=== PATIENT | female | born 1945 ===

== ENCOUNTER 2019-12-27 14:33 | Outpatient (CLI) | payer MEDICARE, SELFPAY ==
[2019-12-27 15:30] VITALS: PULSE 95; O2SAT 93
[2019-12-27 15:35] VITALS: PULSE 124; O2SAT 87
[2019-12-27 15:36] VITALS: O2SAT 87
[2019-12-27 15:38] VITALS: PULSE 120; O2SAT 90
[2019-12-27 15:50] VITALS: PULSE 100; O2SAT 93
--- NOTE | 2019-12-27 16:10 | HOMEO2EVAL ---
Home Oxygen Evaluation RC: Home Oxygen (O2) Evaluation Start: 12/27/19 16:07 Freq: Status: Active Protocol: RPE Activity Type Activity Date Activity User E-Sign Co-Sign Detail Recorded Client Recorded Date Recorded By Document 12/27/19 15:30 TRAN [email or web address] 12/27/19 16:10 TRAN Document 12/27/19 15:35 TRAN [email or web address] 12/27/19 16:10 TRAN Document 12/27/19 15:36 TRAN [email or web address] 12/27/19 16:10 TRAN Document 12/27/19 15:38 TRAN [email or web address] 12/27/19 16:10 TRAN Document 12/27/19 15:50 TRAN [email or web address] 12/27/19 16:10 TRAN 12/27/19 12/27/19 12/27/19 15:30 15:35 15:36 Home O2 Evaluation Test Phase Resting Exercise Exercise Oxygen Delivery Room Air Room Air Nasal Cannula Oxygen Flow Rate (L/min) 1 Pulse Oximetry (90-100 %) 93 87 L 87 L Pulse Rate (60-100 beats/min) 95 124 H Activity Tolerance Excellent Ambulation Distance (feet) Home Oxygen Evaluation Comments Treatment Charges O2 Evaluation 12/27/19 12/27/19 15:38 15:50 Home O2 Evaluation Test Phase Exercise Resting Oxygen Delivery Nasal Cannula Room Air Oxygen Flow Rate (L/min) 2 Pulse Oximetry (90-100 %) 90 93 Pulse Rate (60-100 beats/min) 120 H 100 Activity Tolerance Ambulation Distance (feet) 600 Home Oxygen Evaluation Comments PT REQUIRES 2 L WITH ACTIVITY/ EXERTION Treatment Charges
--- NOTE | 2019-12-27 16:11 | PCRCNOTE ---
HOME O2 EVAL FAXED TO DR MADDEN OFFICE STAFF
--- NOTE | 2019-12-30 19:00 | WPDPFTINT ---
PFT Interpretation PFT Interpretation: DOS: 12/27/2019 REQUESTING: Dr. Back REASON FOR TESTING: ILD PULMONARY FUNCTION TESTS Results are reliable and reproducible. Spirometry: FEV1 71%, mildly decreased. FVC 67%, mildly decreased. FEV1% is normal. Decreased KOJ40-56% with a 15% increase in flows in small airways. Lung volumes: Total lung capacity 62% moderately decreased consistent with restriction. no air trapping. Increased airway resistance. Diffusion: DLCO 47% moderately decreased. Flow volume loop: Scooping in the expiratory limb. IMPRESSION: Moderate restriction evidence by decreased total lung capacity. Increased airway resistance. Small airways pattern. Moderate reduction in DLCO. Compared to prior study on 11/24/2017 spirometry is the same. Total lung capacity has decreased, was 75% now 62%. DLCO has dropped from 64% to 47%, a significant decrease. This is consistent with progression of interstitial lung disease. Jes Back MD
== END 2019-12-27 14:34 | disposition home or self-care (01) ==
PROVIDERS: PCP Internal Medicine; Visit Provider Internal Medicine Critical Care Medicine
DX: J96.10 Chronic respiratory failure, unspecified whether with hypoxia or hypercapnia (principal); R94.2 Abnormal results of pulmonary function studies
CPT/HCPCS: 94060; 94618; 94726; 94729

== ENCOUNTER 2021-07-02 14:30 | Inpatient (IN) | payer MEDICARE, SELFPAY ==
[2021-07-02] VITALS (23 sets, daily range): BP systolic 80–168; BP diastolic 52–99; PULSE 90–117; RESP 20–46; TEMP 35.5–37.1; O2SAT 89–99
--- NOTE | ~2021-07-02 | CT_ITS ---
EXAMINATION: CTA chest PE protocol EXAM DATE: 07/02/2021 15:42 INDICATION: shortness of breath . TECHNIQUE: Spiral CTA of the chest (pulmonary arteries) was performed with 100 cc Omnipaque 350 intr avenous contrast injection. Images were acquired during the pulmonary arterial phase. Coronal maxi mum intensity projection 3D-reconstructions were created by the technologist on dedicated workstation . Axial, coronal and sagittal reformatted images were reviewed. The dose-length product (DLP) for t his examination was 146.23 mGy-cm. The exposure was tailored according to patient size (auto mA exp osure control), and iterative reconstruction (ASIR) was used as additional dose reduction technique. There is no prior study for comparison. FINDINGS: There are multiple masses in each breast, largest on the left side and appears contiguous w ith the skin for clinical correlation, region measuring 1.5 x 4.3 cm. But there is bilateral hilar ly mphadenopathy, soft tissue encasing the hilar bronchovascular structures making discrete lymph nodes difficult to measure, and bilateral mediastinal lymphadenopathy. No axillary lymphadenopathy. The main, central pulmonary arteries are dilated which can indicate elevated pulmonary arterial press ure, pulmonary arterial hypertension. There are no filling defects within these pulmonary arteries. There is peripheral, basilar predominant airspace disease which is subsolid in density, differential diagnosis including lymphangitic carcinomatosis, interstitial lung disease, acute infection or acute on chronic process. There is cardiomegaly. Upper abdomen is unremarkable. Moderate thoracic spondylos is. IMPRESSION: 1. Multiple bilateral breast masses breast masses, thoracic lymphadenopathy with infiltrative appear ing hilar, mediastinal soft tissue. 2. Moderate amount of peripheral predominant. Solid density, acute and/or chronic airspace disease. Given the breast masses and lymphadenopathy, possible lymphangitic carcinomatosis. 3. Cardiomegaly. Dilated pulmonary arteries without emboli. Reviewed, dictated and finalized at location G. ENT DEVELOPMENT MANAGER IMPRESSION: 1. Multiple bilateral breast masses breast masses, thoracic lymphadenopathy wi th infiltrative appearing hilar, mediastinal soft tissue. 2. Moderate amount of peripheral predominant. Solid density, acute and/or special forces specialist latisha airspace disease. Given the breast masses and lymphadenopathy, possible lym phangitic carcinomatosis. 3. Cardiomegaly. Dilated pulmonary arteries without emboli.
--- NOTE | ~2021-07-02 | XR_ITS ---
EXAMINATION: XR chest PICC line EXAM DATE: 07/03/2021 15:31 INDICATION: PICC line placement. Breast masses on CT. TECHNIQUE: Portable AP frontal chest x-ray was obtained. Comparison is made to prior examination from 07/03/2021. FINDINGS: There is cardiomegaly and pulmonary vascular congestion. Diffuse abnormal reticulation agai n noted, differential diagnosis including pneumonia and/or edema, lymphangitic carcinomatosis, chroni c interstitial lung disease. No pneumothorax. No sizable pleural effusion. There is a right-sided PIC C line in expected position. The bones are osteopenic. There are bony degenerative changes. IMPRESSION: 1. Moderate amount of peripheral predominant airspace disease, acute and/or chronic. 2. Cardiomegaly, congestion. 3. Right PICC line in position. Reviewed, dictated and finalized at location G. UCTION SUPPORT ENGINEER IMPRESSION: 1. Moderate amount of peripheral predominant airspace disease, acute and/or ch ronic. 2. Cardiomegaly, congestion. 3. Right PICC line in position.
--- NOTE | ~2021-07-02 | US_ITS ---
US breast BI complete 07/06/2021 16:18 Indication: Bilateral breast masses seen on prior examination. History of breast cancer. Procedure: High-resolution complete bilateral breast ultrasound including all 4 quadrants in the suba reolar locations. Comparison: No prior studies for comparison. Findings: There are multiple hypoechoic ill-defined masses with dense posterior shadowing in both remberto asts, largest located at the 12:00 position of both breasts. Impression: 1: Multiple ill-defined bilateral breast masses with dense posterior shadowing. Recommendation: Digital diagnostic bilateral mammogram recommended for further assessment. BI-RADS CATEGORY 0 - INCOMPLETE STUDY, NEED ADDITIONAL IMAGING EVALUATION. Reviewed, dictated and finalized at location A. ER HAND Impression: 1: Multiple ill-defined bilateral breast masses with dense posterior shadowing. Recommendation: Digital diagnostic bilateral mammogram recommended for further assessment. BI-RADS CATEGORY 0 - INCOMPLETE STUDY, NEED ADDITIONAL IMAGING EVALUATION.
--- NOTE | ~2021-07-02 | XR_ITS ---
EXAMINATION: XR chest 1V portable DATE: 07/03/2021 08:56 INDICATION: Interstitial lung disease. Pneumonia. TECHNIQUE: frontal view of the chest was obtained. COMPARISON: Chest radiograph dated 09/07/[address] dated 07/02/2021 FINDINGS: There is been interval progression since 09/07/2017 in peripheral and basilar predominant coarse opaci ties with appearance on prior CT raising suspicion for chronic interstitial lung disease potentially with superimposed pulmonary edema. Suture line in the right lower lung zone. No pleural effusion or p neumothorax. Mild cardiomegaly. Enlargement of the central pulmonary arteries consistent with pulmona ry arterial hypertension. Increased fullness to the AP window and thickening of the right paratrachea l stripe corresponding to mediastinal lymphadenopathy on prior CT suspicious for metastatic disease. IMPRESSION: 1. Diffuse peripheral and lower lung predominant opacities most likely related to chronic interstitia l lung disease potentially with superimposed pulmonary edema or pneumonia. 2. Mediastinal lymphadenopathy better appreciated on prior CT and suspicious for metastatic disease. 3. Cardiomegaly with enlargement of the central pulmonary arteries consistent with pulmonary arterial hypertension. Reviewed, dictated and finalized at location A. ANICAL SPREADER OPERATOR IMPRESSION: 1. Diffuse peripheral and lower lung predominant opacities most likely related to chronic interstitial lung disease potentially with superimposed pulmonary ed dylan or pneumonia. 2. Mediastinal lymphadenopathy better appreciated on prior CT and suspicious fo r metastatic disease. 3. Cardiomegaly with enlargement of the central pulmonary arteries consistent w ith pulmonary arterial hypertension.
--- NOTE | ~2021-07-02 | CT_ITS ---
EXAMINATION: CT abdomen pelvis wo con DATE: 07/03/2021 12:07 INDICATION: Breast cancer. Hypothermia. TECHNIQUE: Computed tomography (CT) of the abdomen and pelvis was performed without intravenous contr ast. Automated exposure control and iterative reconstruction technique were employed. Exam dose: 570 .42 mGy-cm total exam DLP. COMPARISON: July 02, 2021 CTA chest FINDINGS: Exam quality is limited due to the upper extremities overlying the abdomen. Prominent septal soft tissue thickening in the included lower lung zones with peripheral predilection in addition to bronchiectasis, suggesting usual interstitial pneumonia interstitial fibrosis. Prominent pulmonary arteries, suggesting pulmonary artery hypertension. Cardiomegaly. Multiple bilateral breast masses; clinical history of breast cancer. The liver, gallbladder, bile ducts pancreas, pancreatic duct and spleen appear unremarkable; the sple en measures 12 cm vertical dimension, within upper normal range. Normal morphology of the adrenal glands. There is still some intravenous contrast material on board, apparently from the CTA of the chest from yesterday. There is suggestion of a 2.5 mm calculus of the mid to lower aspect of the left kidney. No hydronephr osis of either kidney. No renal space occupying mass lesion is evident. There is normal caliber of the abdominal aorta. There is a right femoral artery catheter terminating in the proximal right common iliac artery. No intraperitoneal or retroperitoneal or pelvic mass lesion or adenopathy or ascites is detected. There is a Ureña catheter within the evacuated urinary bladder. Small sliding hiatal hernia. There are nondilated small bowel segments with occasional air-fluid leve ls which may be due to adynamic ileus or enteritis. Diverticulosis of the sigmoid colon; no CT evidence of diverticulitis is detected. There is a promine nt amount of fecal material in the colon. No intraperitoneal free air is detected. Very small fat-containing umbilical hernia. Diffuse idiopathic skeletal hyperostosis of the thoracic spine. There is moderate biconcave likely chronic compression fracture deformity of L5. There is very prominent degenerative change at the apophyseal joints of the lumbar and lumbosacral sp ine with associated grade 1 anterolisthesis at L4-5. Severe bilateral hip osteoarthritis. Degenerative change at the pubic symphysis and sacroiliac joints . IMPRESSION: Probably usual interstitial pneumonia interstitial fibrosis of the lungs Prominent pulmonary artery suggesting pulmonary hypertension Cardiomegaly Multiple breast masses; history of breast cancer Suggestion of a small nonobstructing left renal calculus Right femoral artery catheter in proximal common iliac artery Small sliding hiatal hernia Small bowel scattered air-fluid levels suggesting enteritis or mild adynamic ileus Diverticulosis of the sigmoid colon; no evidence of diverticulitis Probable L5 compression fracture deformity Grade 1 anterolisthesis at L4-5 due degenerative change at apophyseal joints Severe bilateral hip osteoarthritis Reviewed, dictated and finalized at Location A. Reviewed, dictated and finalized at location B. S PROPERTY MANAGER IMPRESSION: Probably usual interstitial pneumonia interstitial fibrosis of the lungs Prominent pulmonary artery suggesting pulmonary hypertension Cardiomegaly Multiple breast masses; history of breast cancer Suggestion of a small nonobstructing left renal calculus Right femoral artery catheter in proximal common iliac artery Small sliding hiatal hernia Small bowel scattered air-fluid levels suggesting enteritis or mild adynamic il eus Diverticulosis of the sigmoid colon; no evidence of diverticulitis Probable L5
--- NOTE | ~2021-07-02 | XR_ITS ---
EXAMINATION: XR chest 1V portable EXAM DATE: 07/06/2021 09:06 INDICATION: Hypersensitivity pneumonitis. TECHNIQUE: Portable AP frontal chest x-ray was obtained. Comparison is made to prior examination from 07/03/2021. FINDINGS: Right-sided PICC line, tip projecting over the SVC, appears to have retracted several centi meters. Extensive bilateral chronic or acute on chronic airspace disease unchanged. No pneumothorax o r sizable pleural effusion. Cardiomediastinal silhouette is normal. There are bony degenerative ornelas es. IMPRESSION: 1. PICC line retracted several centimeters, tip still in SVC. 2. Extensive bilateral chronic or acute on chronic airspace disease unchanged. Reviewed, dictated and finalized at location B. H HAND
--- NOTE | ~2021-07-02 | XR_ITS ---
XR chest 2V DATE: 07/14/2021 10:33 INDICATION: Interstitial lung disease TECHNIQUE: AP and lateral views COMPARISON: July 09, 2021 portable AP chest July 02, 2021 CT pulmonary scan 09/06/2021/03/2018 two-view chest FINDINGS: Right upper extremity PIC catheter tip overlies the superior vena cava. Cardiomegaly. No pulmonary vascular congestion, pleural effusion or pneumothorax is evident. There are chronic interstitial fibrotic changes predominating in the peripheral lung zones. There are diminished bilateral pulmonary infiltrates since 07/09/2021. Diffuse osteopenia. There is bilateral chronic rotator cuff atrophy. Degenerative spurring and mild scoliosis of the thoracic spine. IMPRESSION: Diminished bilateral pulmonary infiltrates since 07/09/2021 Bilateral chronic interstitial fibrotic change Reviewed, dictated and finalized at location B. E INSTRUCTOR
--- NOTE | ~2021-07-02 | US_ITS ---
EXAMINATION: US abdomen limited DATE: 07/03/2021 11:16 INDICATION: Abnormal liver function tests. TECHNIQUE: Multiple grayscale and Doppler ultrasound images of the abdomen were obtained. COMPARISON: Chest CT 07/02/2021 FINDINGS: The visualized portions of the head, body, and tail of the pancreas are normal. The liver i s normal without focal lesion. There is normal flow in main portal vein. The gallbladder is normal in size. No gallstones or gallbladder wall thickening. There was no sonographic Delatorre sign. The common duct is normal and measures 4 mm. IMPRESSION: 1. No etiology for abnormal liver function tests. Reviewed, dictated and finalized at location E. DEVELOPER WITH [employer]
--- NOTE | ~2021-07-02 | XR_ITS ---
EXAMINATION: XR chest 1V portable DATE: 07/09/2021 09:57 INDICATION: Hypersensitivity pneumonitis TECHNIQUE: frontal view of the chest was obtained. COMPARISON: Chest radiograph dated 07/16/2021 FINDINGS: Suture line in the lateral right mid to lower lung zone. No significant change in diffuse airspace op acities throughout both lungs. No pneumothorax or definitive pleural effusion. Borderline heart size. Enlargement of the central pulmonary arteries consistent with pulmonary arterial hypertension.. Righ t upper extremity peripherally inserted central venous catheter (PICC) tip at the mid superior vena cava. IMPRESSION: 1. No significant change in bilateral airspace opacities due at least in part to chronic interstitial lung disease with potential for superimposed more acute pulmonary edema or pneumonia. 2. Borderline heart size with enlargement of the central pulmonary arteries consistent with pulmonary arterial hypertension. Reviewed, dictated and finalized at location A. [employer]OR[employer] SCIENCE CHAIR IMPRESSION: 1. No significant change in bilateral airspace opacities due at least in part t o chronic interstitial lung disease with potential for superimposed more acute pulmonary edema or pneumonia. 2. Borderline heart size with enlargement of the central pulmonary arteries con sistent with pulmonary arterial hypertension.
--- NOTE | 2021-07-02 14:57 | ED.WEAKNESS ---
HPI - Weakness General Chief complaint: Weakness Stated complaint: SOB Time Seen by Provider: 07/02/21 14:39 Source: patient History of Present Illness HPI Narrative: Patient presents with shortness of breath and weakness. Patient reports she has been getting progressively worse symptoms over the past couple days. She is currently residing in a hotel motel called an ambulance as she has been too weak to answer the door. She denies any fever she reports a history of interstitial lung disease and has a 4 L oxygen requirement at home she denies any focal areas of pain denies any nausea. Related Data Home Medications Medication Instructions Recorded Confirmed dextroamphetamine-amphetamine 20 20 mg PO BID 10/16/19 04/10/21 mg tablet paroxetine HCl 40 mg tablet 40 mg PO DAILY 10/16/19 04/10/21 Allergies Allergy/AdvReac Type Severity Reaction Status Date / Time No Known Allergies Allergy Unverified 04/10/21 10:03 Review of Systems Review of Systems: CONSTITUTIONAL: Denies fever, chills, or sweats. EYES: Denies visual changes, redness, or discharge. ENT: Denies rhinorrhea, congestion, sore throat, or otalgia. CARDIOVASCULAR: Denies chest pain, palpitations, or edema. RESPIRATORY: Reports shortness of breath GASTROINTESTINAL: Denies abdominal pain, nausea, vomiting, or diarrhea. GENITOURINARY: Denies dysuria or hematuria. SKIN: Denies rash or itching. MUSCULOSKELETAL: Denies back pain, joint pain, or myalgia. NEUROLOGIC: Denies headache, numbness, dizziness, or focal weakness. PSYCHIATRIC: Denies anxiety or depression. All systems reviewed & are unremarkable except as noted in HPI and below PMFSH Past Medical History Medical History (Updated 07/02/21 @ 16:51 by Jermaine Brownlee MD) Bronchiectasis Chronic respiratory failure Contact with and (suspected) exposure to mold (toxic) Hypersensitivity pneumonitis Intentional underdosing of medication regimen by patient due to financial hardship Oxygen dependent Surgical History Surgical History H/O: hysterectomy History of appendectomy Family History Family History Father Cerebrovascular accident, Onset Age: 93 Family history of Alzheimer's disease, Onset Age: 93 Family history of dementia, Onset Age: 93 Mother Cerebrovascular accident, Onset Age: 91 Social History Social History Smoking status: Former smoker Smoking end date: 05/30/1967 Exam Narrative: GENERAL: Frail-appearing and in no acute distress. HEAD: Normocephalic, atraumatic. EYES: PERRLA and EOMI. ENT: Nares clear, no rhinorrhea or epistaxis. Mucous membranes moist. NECK: Supple. No masses. No JVD CHEST: Increased respiratory effort with diffuse rhonchi in all lung pinto HEART: Regular rate and rhythm. No murmur heard. Normal peripheral pulses. ABDOMEN: Soft, nontender, nondistended, normal active bowel sounds. EXTREMITIES: Normal range of motion. No edema. SKIN: Warm, dry, no rash. NEURO: No focal deficits. Alert and oriented x3. PSYCH: Normal mood and affect. Course Vital Signs Vital signs: Vital Signs Temperature 36.4 C 07/02/21 14:35 Pulse Rate 117 H 07/02/21 14:35 Respiratory Rate 22 H 07/02/21 14:35 Blood Pressure 98/55 L 07/02/21 14:35 Pulse Oximetry 95 07/02/21 14:35 Temperature 36.4 C 07/02/21 14:35 Pulse Rate 103 H 07/02/21 16:45 Respiratory Rate 30 H 07/02/21 16:45 Blood Pressure 168/99 H 07/02/21 15:11 Pulse Oximetry 89 L 07/02/21 16:45 MDM - Weakness MDM Narrative Medical decision making narrative: Patient presents with shortness of breath and weakness over the past couple days. Patient has known interstitial lung disease and chronic right heart failure. Patient overall looks chronically ill vital signs notable for tachycardia and tachypnea.
--- NOTE | 2021-07-02 14:59 | ECG_ITS ---
Measurements Intervals [place] Rate: 108 P: 66 [place]: 132 QRS: 110 QRSD: 98 T: -6 QT: 314 QTc: 422 Interpretive Statements SINUS TACHYCARDIA ATRIAL PREMATURE COMPLEX RIGHT AXIS DEVIATION POSSIBLE LEFT ATRIAL ENLARGEMENT INCOMPLETE RIGHT BUNDLE BRANCH BLOCK ST-T WAVE ABNORMALITY IN ANTEROSEPTA/INF LEADS- CONSIDER ISCHEMIA ABNORMAL ECG Electronically Signed On 07-02-2021 20:19:39 NATURAL DEVELOPER by Nawaf Wagoner D.O.
[2021-07-02 15:10] LABS: Basophils Absolute Auto 0.1 K/mm3 (0.0-0.1); Basophils Percent Auto 0.4 % (0.2-1.2); Eosinophils Percent Auto 0.2 % (0-4.4); Hematocrit 39.2 % (37.0-47.0); Hemoglobin 13.1 g/dL (12.0-15.0); Immature Granulocyte Absolute 0.11 K/mm3 (0.00-0.031); Immature Granulocyte Percent A 0.9 % (0-0.5); Immature Platelet Fraction Pct 8.7 % (0.9-11.2); Lymphocytes Absolute Auto 0.34 K/mm3 (0.9-3.2); Lymphocytes Percent Auto 2.6 % (18.3-44.2); Mean Corpuscular HGB Conc 33.4 g/dl (32-36); Mean Corpuscular Hemoglobin 29.5 pg (26-34); Mean Corpuscular Volume 88.3 fl (80-100); Mean Platelet Volume 11.2 fl (7.4-10.4); Monocytes Absolute Auto 0.2 K/mm3 (0.1-0.6); Monocytes Percent Auto 1.2 % (2.6-8.5); Neutrophils Absolute Auto 12.2 K/mm3 (1.3-6.7); Neutrophils Percent Auto 94.7 % (45.5-73.1); Platelet Count Result 122 k/mm3 (150-375); Red Blood Count 4.44 M/mm3 (4.2-5.4); Red Cell Distribution Width 15.9 % (11.5-14.5); White Blood Count 12.9 K/mm3 (4.5-10.0)
[2021-07-02 15:14] LABS: Alveolar/Arterial O2 Gradient 134.6 mmHg; Base Excess ABG 3.9 mEq/l (+/-2.0); Fractional Inspired Oxygen 36 %; HCO3 ABG 27.1 mEq/l (22.0-26.0); Oxygen Content ABG 18.1 %vol (16.0-22.0); Oxygen Saturation ABG 96.6 % (95.0-100.0); Oxyhemoglobin 95.3 % THb (90.0-100.0); PCO2 ABG 36.4 mmHg (35.0-45.0); PO2 ABG 79.9 mmHg (80.0-100.0); PO2 FiO2 Ratio Arterial Blood 2.22 %; Total Hemoglobin 13.5 g/dL (12.0-18.0)
[2021-07-02 15:15] LABS: Device NASAL CANNULA; Modified Allen's Test Pass; Site Drawn LEFT RADIAL
[2021-07-02 15:19] LABS: Alanine Aminotransferase 45 U/L (4-35); Albumin Level 3.1 g/dL (3.5-5.1); Alkaline Phosphatase 61 U/L (38-126); Anion Gap 3 mmol/L (8-16); Aspartate Amino Transferase 74 U/L (14-36); Bilirubin,Total 0.7 mg/dL (0.2-1.3); Blood Urea Nitrogen 18 mg/dL (7-17); Calcium 8.1 mg/dL (8.4-10.2); Carbon Dioxide 31 mmol/L (22-30); Chloride 96 mmol/L (98-107); Estimated CRCL calculation 48 ml/min; Estimated Glomerular Filt Rate > 60; Glucose 136 mg/dL (65-110); Potassium 3.7 mmol/L (3.4-5.0); Sodium 130 mmol/L (137-145)
[2021-07-02 15:22] LABS: Ovalocytes 1+ (NORMAL); Platelet Estimate Decreased (Adequate)
[2021-07-02 15:27] LABS: NT Pro B Type Natriuretic Pept 12900 pg/mL (5-100)
[2021-07-02 16:03] LABS: Add Urine Microscopic? YES; Appearance Urine Clear (Clear); Bilirubin Urine Negative (Negative); Blood Urine 1+ (Negative); Color Urine Amber (Yellow); Glucose Urine UA Negative (Negative); Ketones Urine Negative (Negative); Leukocyte Esterase Ur Negative LEU/UL (Negative); Mucus Urine Heavy /lpf; Nitrate Urine Negative (Negative); Protein Urine 2+ mg/dL (Negative); Specific Grav Ur 1.039 (1.001-1.035); Squamous Epithelial Cell Urine Occasional /hpf (Few); Urobilinogen Urine Negative mg/dL (<2.0)
--- NOTE | 2021-07-02 17:45 | PM.IMHP ---
H&P: HPI History of Present Illness Date/Time: 07/02/21 17:45 Chief Complaint: Weakness and shortness of breath. Narrative: This is a 75-year-old female with chronic hypoxic respiratory failure related to interstitial lung disease who presented to the emergency department via EMS from a local mot for evaluation of weakness and shortness of breath. She reports chronic dyspnea on exertion and gets winded with everyday activities. Over the last several days she has felt increasingly short of breath from her baseline with a nonproductive cough, chills, and sweats. She was seen in the emergency department at [facility] sometime yesterday for evaluation of shortness of breath and chest discomfort. At that time she was apparently diagnosed with pneumonia and discharged home with a prescription for antibiotics though she has not been able to get that filled as of yet. She is not feeling any better today and opted to come here for evaluation. Chest CTA done on arrival showed multiple bilateral breast masses with thoracic lymphadenopathy and a moderate amount of peripheral predominant airspace disease, likely acute and/or chronic, though lymphangitis carcinomatosis is also possibility. Initial plans were to possibly discharge the patient for outpatient follow-up though it came to light that she is currently staying at a local motel and on EMS arrival her room was in disrepair with hoarding conditions. The mot is not willing to take the patient back and due to the social constraints it was felt that keeping the patient hospital overnight for further treatment and evaluation was more appropriate. ED physician spoke with Dr. Espinal (pulmonology) and given findings on imaging he has requested that she be started on broad-spectrum antibiotics and nebulizers. Regarding the breast masses, she admits that she noted them ?quite some time ago? and she thought that perhaps they were due to previous breast implants which were removed. At the time my evaluation she feels a bit better after receiving a nebulizer. She denies fever, headache, sinus congestion, rhinorrhea, sore throat, chest pain, pleuritic pain, palpitations, orthopnea, PND, lower extremity edema, nausea, vomiting, and dysuria. Weight has remained stable. She has no known history of cancer. Review of Systems Review of Systems: Twelve systems were reviewed. No sick contacts. No known exposure to those positive for COVID 19. She is followed by Dr. Back and was referred to [facility] in [place] for possible lung transplant though has been deemed not a candidate at this time. It looks like she was recently seen by them at the beginning of May 2021. She denies dysphagia and concerns for aspiration. She has had some loose stools but not in significant quantities. Except as documented, all other systems were reviewed and are negative. [facility] Past Medical History Medical History (Updated 07/02/21 @ 22:30 by Angela Zhong PA-C) Bronchiectasis Chronic interstitial lung disease Chronic respiratory failure with hypoxia Depression Hypersensitivity pneumonitis Intentional underdosing of medication regimen by patient due to financial hardship Pulmonary fibrosis Right ventricular dysfunction Surgical History Surgical History (Updated 07/02/21 @ 22:28 by Angela Zhong PA-C) History of appendectomy History of breast implant With subsequent removal. History of hysterectomy History of lung biopsy Right VATS. 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 Family History Family History Father Cerebrovascular accident, Onset Age: 93 Family history of Alzheimer's disease, Onset Age: 93 Family history of dementia, Onset Age: 93 Mother Cerebrovascular accident, Onset Age: 91 Social History Social History (Updated 07/02/21 @ 22:24 by Angela Zhong PA-C) Social History:
[2021-07-02 17:53] LABS: SARS-CoV-2 RNA PCR Negative
[2021-07-02] MEDS: PIPERACILLIN/TAZOBACTAM SOD 4.5 GM in SODIUM CHLORIDE 0.9% IV 100 ML 200 ML IVPB (18:51)
[2021-07-02] MEDS: methylPREDNISolone SOD SUCC 125 MG VIAL 60 MG IV PUSH (18:51)
[2021-07-02] MEDS: ALBUTEROL SULFATE NEB 2.5 MG/0.5 ML INH INHALATION (20:45)
[2021-07-02] MEDS: IPRATROPIUM BR 0.02% INH SOLN 0.5 MG/2.5 ML VIAL INHALATION (20:45)
[2021-07-02 21:01] LABS: Glucose Point of Care 151 mg/dl (65-105)
--- NOTE | 2021-07-02 21:06 | ADMGEN ---
This patient, Schuyler Aviles, was admitted to 2 Medical Room 241-. Patient/family oriented to hospital policies and general routines including ID bracelet, bed and alarms, visiting hours, pain management, procedures, bathroom and other care routines, personal items, smoking policy, room service/diet, and visiting hours. Information on how to activate the Rapid Response Team has been discussed. Patient/Family are encouraged to report perceived risks to care and to ask questions if they do not understand what they are told or what they should do.
[2021-07-02] MEDS: FUROSEMIDE INJ 40 MG/4 ML VIAL 20 MG IV PUSH (21:38)
[2021-07-02] MEDS: SODIUM CHLORIDE 0.9% IV 500 ML IV CONT (23:21)
[2021-07-03] VITALS (42 sets, daily range): BP systolic 70–116; BP diastolic 47–103; PULSE 74–132; RESP 16–33; TEMP 32.3–35.7; O2SAT 53–100; BMI 26.2
--- NOTE | 2021-07-03 | ECHO_ITS ---
Patient Info Name: Schuyler Aviles Age: 75 years : 1945 Gender: Female Ht: 61 in Wt: 139 lbs BSA: 1.66 m2 HR: 95 bpm BP: 70 / 50 mmHg Heart Rhythm: Atrial Fibrillation Technical Quality: Fair Exam Date: 07/03/2021 7:25 AM Exam Location: [facility] Patient Status: Outpatient Admit Date: 07/02/2021 Staff Ordering Physician: Kanchan Holman MD Training Development Specialist: Kaylyn Marroquin RDCS Attending Provider: Azeb Lyons MD Referring Physician: Manda SZYMANSKI; Exam Type: CA echo dop color flow w con Study Info Indications - elevated bnp Complete two-dimensional, color flow and Doppler transthoracic echocardiogram is performed. Summary 1. Complete two-dimensional, color flow and Doppler transthoracic echocardiogram is performed. 2. Left ventricular chamber dimension is mildly enlarged. 3. Definity Contrast administered improved wall motion interpretation. 4. Left ventricular systolic function is mildly reduced, estimated at 45-50%. 5. There is mildly increased left ventricular wall thickness. 6. Left ventricular septal wall motion is abnormal with septal motion related to bundle branch block. 7. The left ventricular diastolic function is abnormal. 8. E/e' 12 is mildly elevated. 9. Right ventricular systolic function is moderately reduced and with abnormal TAPSE 1.3 cm. 10. Right ventricular chamber dimension is moderately enlarged. 11. Right atrial chamber dimension is moderately enlarged. 12. There is trace mitral valve regurgitation. 13. There is mild tricuspid valve regurgitation. 14. No pulmonary hypertension, estimated pulmonary arterial systolic pressure is 24 mmHg. 15. There is trivial pericardial effusion. Left Ventricle E/e' 12 is mildly elevated. Definity Contrast administered improved wall motion interpretation. Left ventricular chamber dimension is mildly enlarged. Left ventricular systolic function is mildly reduced, estimated at 45-50%. There is mildly increased left ventricular wall thickness. Left ventricular septal wall motion is abnormal with septal motion related to bundle branch block. The left ventricular diastolic function is abnormal. Right Ventricle Right ventricular systolic function is moderately reduced and with abnormal TAPSE 1.3 cm. Right ventricular chamber dimension is moderately enlarged. Left Atria Left atrial chamber dimension is normal. Right Atria Right atrial chamber dimension is moderately enlarged. Aortic Valve The aortic valve is trileaflet. There is no aortic valve stenosis. There is no aortic valve regurgitation. Pulmonic Valve There is no pulmonic regurgitation. Mitral Valve There is no mitral valve stenosis. There is trace mitral valve regurgitation. Tricuspid Valve There is mild tricuspid valve regurgitation. No pulmonary hypertension, estimated pulmonary arterial systolic pressure is 24 mmHg. Pericardium/Pleural There is trivial pericardial effusion. Inferior Vena Cava Normal inferior vena cava with >50% collapse upon inspiration consistent with normal right atrial pressure, 5 mmHg. Aorta The aortic root size at the sinus of Valsalva is normal. Left Ventricular Outflow Tract Name Value Normal LVOT 2D LVOT Dania
[2021-07-03 00:11] LABS: Hemoglobin A1C 6.7 % (<5.7)
[2021-07-03] MEDS: PIPERACILLIN/TAZOBACTAM SOD 4.5 GM in SODIUM CHLORIDE 0.9% IV 100 ML 200 ML IVPB ×4 (00:21→23:33)
[2021-07-03] MEDS: SODIUM CHLORIDE 0.9% IV 1,000 ML 999 ML IV CONT (00:26)
[2021-07-03 00:52] LABS: Creatinine Urine 29.8 mg/dL
[2021-07-03 00:53] LABS: Sodium Urine Random 62 meq/L
[2021-07-03 01:05] LABS: Hepatitis B Surface Antigen Negative (Negative)
[2021-07-03 01:11] LABS: HAV RESULT Negative (Negative); Hepatitis B Core IgM Result Negative (Negative)
[2021-07-03 01:23] LABS: Hepatitis C Virus Antibody Negative (Negative)
[2021-07-03] MEDS: methylPREDNISolone SOD SUCC 125 MG VIAL 60 MG IV PUSH ×2 (01:31→07:38)
[2021-07-03] MEDS: HYDROCORTISONE SODIUM SUCCINATE 100 MG/2 ML VIAL IV PUSH ×3 (01:58→20:58)
[2021-07-03] MEDS: ALBUTEROL SULFATE NEB 2.5 MG/0.5 ML INH INHALATION ×2 (02:04→08:45)
[2021-07-03] MEDS: IPRATROPIUM BR 0.02% INH SOLN 0.5 MG/2.5 ML VIAL INHALATION ×3 (02:04→20:30)
[2021-07-03 02:42] LABS: Lactic Acid Reflex 1.2 mmol/L (0.7-2.1)
[2021-07-03 02:55] LABS: Troponin I < 0.012 ng/mL (0.000-0.034)
--- NOTE | 2021-07-03 03:39 | PC.NURSE ---
Pt arrived with diaphoretic skin and low b/p from ED. Pt's b/p was an average of 80s/50s, temp was taken rectally and found to be 96.2F. Pt was given evening meds and b/p was still low. Dr. Holman is informed and orders for a 1L bolus and hydrocortisone to be administered. During bolus b/p did not improve, temperature was dropping to 95.1f. When bolus was completed, b/p is 78/58, pt is still diaphoretic, temperature is still 95.0f and not improving despite high temp and fan with Raghavendra Hugger in place, pt also showed an Afib rhythm on tele monitor. Temps are checked q15 x1 hour per protocol, with no current improvement. Manda Vincent is informed of pt's status: transfer orders are placed, 1L bolus is ordered and Raghavendra hugger continued, This RN complies. Pt is transferred without incident.
--- NOTE | 2021-07-03 05:15 | PC.NURSE ---
This patient, Schuyler Aviles, was received from [address] [place] [address] on 07/03/21 at 0405. Patient/family oriented to unit policies and routines
--- NOTE | 2021-07-03 05:16 | PC.NURSE ---
This patient, Schuyler Aviles, was transferred to ICU 5 on 07/03/21 at 0450. Personal belongings sent with patient. Report given to Vivienne SINGLETARY. Appropriate documentation sent with patient.
[2021-07-03] MEDS: NOREPINEPHRINE 8 MG/D5W 250 ML 8 MG/250 ML BAG 18.75 MG IV CONT (05:30)
--- NOTE | 2021-07-03 05:59 | PM.EVENT ---
Event Note Event Note Event Note: Patient was transferred to IMU due to persistent hypotension after receiving IV fluid resuscitation patient was noted to be hypothermic as well and was transferred to ICU. Objective: Blood pressure 78/48 temp 96? rectally Subjective: I want everything to be done Right femoral line was placed in and patient was started on vasopressor a retake blood pressure was 92/52 Patient was awake alert through the event. Early goal-directed therapy ongoing.
--- NOTE | 2021-07-03 06:04 | P.PCNBED_ITS ---
Procedures Central Line Placement Right Femoral: Central Line Date: 07/03/21 Central Line Time: 05:23 Consent: yes Time Out Performed: Yes Patient Position: supine Provider Prep: mask, sterile gown, sterile gloves, Max. sterile barrier precautions, cap and hand hygiene with conventional soap/water or alcohol based hand rub Central line prep: 2% Chlorhexidine scrub Amount of anesthesia used (ml): 10 Central line lumen inserted: triple Ukrainian: 15 Post Procedure: sutured in place Patient tolerated procedure: well and no complications
[2021-07-03] MEDS: PIPERACILLIN/TAZOBACTAM SOD 4.5 GM in SODIUM CHLORIDE 0.9% IV 100 ML IVPB (07:37)
--- NOTE | 2021-07-03 07:50 | PC.NURSE ---
This patient, Schuyler Aviles, was received from [facility] on 07/03/21 at 0500. Patient/family oriented to unit policies and routines
--- NOTE | 2021-07-03 08:10 | PC.NURSE ---
[id number] Dr. Holman at bedside. Explained findings of chest CT, low blood pressures that culd be life threatening for pt, and asked if she wanted to remain a full code and have everything possible done, including placement of central venous catheter, infusion of vasopresors, CPR and Ventilator. Pt in agreement. Offered to call pt's daughter and let her know pt was moved to ICU pt responded No, she doesn't know I'm here and that's OK with me.
[2021-07-03] MEDS: PERFLUTREN LIPID MICROSPHERES 1.5 ML VIAL DILUTED TO 10 ML TOTAL VOLUME IV PUSH (08:34)
--- NOTE | 2021-07-03 08:34 | IVDEFINITY ---
Prior to administration of IV Definity the patient was educated on the risks and benefits of the imaging enhancing agent including potential adverse side effects. The patient verbalized understanding. Allergies were verified. No exclusion criteria were identified and at least one of the following inclusion criteria were met: 1) physician request, 2) patient technically difficult to image (per the [place] [employer] guidelines of two or more segments not discernable within the apical view), or 3) questionable left ventricular function. ?
[2021-07-03] MEDS: PARoxetine 20 MG TABLET 40 MG PO (08:50)
[2021-07-03 08:56] LABS: Hematocrit 37.7 % (37.0-47.0); Hemoglobin 12.8 g/dL (12.0-15.0); Immature Platelet Fraction Pct 9.8 % (0.9-11.2); Mean Corpuscular Hemoglobin 29.6 pg (26-34); Mean Corpuscular Volume 87.3 fl (80-100); Mean Platelet Volume 11.5 fl (7.4-10.4); Platelet Count Result 131 k/mm3 (150-375); Red Blood Count 4.32 M/mm3 (4.2-5.4); Red Cell Distribution Width 15.7 % (11.5-14.5); White Blood Count 13.8 K/mm3 (4.5-10.0)
[2021-07-03 09:07] LABS: INR 1.1; Prothrombin Time 14.3 Seconds (11.1-14.7)
[2021-07-03 09:08] LABS: Partial Thromboplastin Time 34.5 SECONDS (22.3-36.8)
[2021-07-03 09:21] LABS: Alanine Aminotransferase 45 U/L (4-35); Albumin Level 2.9 g/dL (3.5-5.1); Alkaline Phosphatase 65 U/L (38-126); Anion Gap 8 mmol/L (8-16); Aspartate Amino Transferase 70 U/L (14-36); Bilirubin,Total 0.6 mg/dL (0.2-1.3); Blood Urea Nitrogen 20 mg/dL (7-17); Calcium 7.8 mg/dL (8.4-10.2); Carbon Dioxide 23 mmol/L (22-30); Chloride 103 mmol/L (98-107); Estimated CRCL calculation 53 ml/min; Estimated Glomerular Filt Rate > 60; Glucose 208 mg/dL (65-110); Sodium 134 mmol/L (137-145)
[2021-07-03] MEDS: ENOXAPARIN 40 MG/0.4 ML SYRINGE SUB-Q (09:32)
[2021-07-03] MEDS: PANTOPRAZOLE SODIUM IV 40 MG VIAL IV PUSH (09:33)
--- NOTE | 2021-07-03 09:38 | WPDCNINT ---
Assessment and Plan Assessment and plan (1) Septic shock: Code(s): A41.9 - Sepsis, unspecified organism; R65.21 - Severe sepsis with septic shock Status: Acute Assessment and Plan: her shock appears to be combination of sepsis and cardiogenic patient received close to 3 L of fluid and was not further responsive to fluids continue Levophed titration she is on steroids check blood culture her UA was negative CT reviewed check lactic acid level Add 25% albumin (2) Elevated LFTs: Code(s): R79.89 - Other specified abnormal findings of blood chemistry Status: Acute Assessment and Plan: abdominal ultrasound (3) Masses of both breasts: Code(s): N63.10 - Unspecified lump in the right breast, unspecified quadrant; N63.20 - Unspecified lump in the left breast, unspecified quadrant Status: Acute Assessment and Plan: CT shows Multiple bilateral breast masses breast masses, thoracic lymphadenopathy with infiltrative appearing hilar, mediastinal soft tissue. Moderate amount of peripheral predominant. Solid density, acute and/or chronic airspace disease. Given the breast masses and lymphadenopathy, possible lymphangitic carcinomatosis. consult oncology for further guidance on biopsy check CT abdomen pelvis (4) Right ventricular dysfunction: Code(s): I51.9 - Heart disease, unspecified Status: Acute Assessment and Plan: I suspect patient has cor pulmonale from her interstitial lung disease check echocardiogram (5) Chronic respiratory failure with hypoxia: Code(s): J96.11 - Chronic respiratory failure with hypoxia Status: Acute Assessment and Plan: patient has interstitial lung disease and is on oxygen at home. 4 L at rest and up to 8 L on activity consult pulmonary. may need a bronchoscopy she is on steroids and broad-spectrum antibiotics (6) ILD (interstitial lung disease): Code(s): J84.9 - Interstitial pulmonary disease, unspecified Status: Acute Assessment and Plan: see above Additional Plan DVT prophylaxis - Lovenox Stress ulcer prophylaxis - PPI Nutrition - regular diet Code Status - patient wishes to be Full Code and wants her daughter Maryanne to be a decision maker if she is unable to make decisions for herself Total Critical Care Time - 40 minutes Due to a high probability of clinically significant, life threatening deterioration, the patient required my highest level of preparedness to intervene emergently and I personally spent this critical care time directly and personally managing the patient. This critical care time included obtaining a history; examining the patient; pulse oximetry; ordering and review of studies; arranging urgent treatment with development of a management plan; evaluation of patient's response to treatment; frequent reassessment; and discussions with other providers. It was exclusive of separately billable procedures and treating other patients and teaching time. Please see Assessment and Plan section and the rest of the note for further information on patient assessment and treatment Locomotive Crane Engineer Consult Note Consult date: 07/03/21 HPI: Schuyler Aviles is a 75 year old female with chronic hypoxic respiratory failure related to interstitial lung disease on oxygen, heart failure who presented to the emergency department via EMS from a local motel for evaluation of weakness and shortness of breath. she is on 4 L of oxygen at rest and up to 8 L of oxygen on activity at this time. She reports chronic dyspnea on exertion and gets winded with everyday activities. Over the last several days she has felt increasingly short of breath from her baseline with a nonproductive cough and felt weak and tired. She was seen in the emergency department at [facility] sometime yesterday for evaluation of shortness of breath and chest discomfort. At that time she was apparently diagnosed with pneu
[2021-07-03 09:49] LABS: Influenza A QL RT-PCR Negative (Negative); Influenza B QL RT-PCR Negative (Negative)
[2021-07-03 10:19] LABS: CRP 30.6 mg/dL (<1.0)
[2021-07-03] MEDS: POTASSIUM CHLORIDE 20 MEQ PACKET (FOR LIQUID) 40 MEQ PO ×2 (10:36→16:47)
[2021-07-03 11:33] LABS: Lactic Acid Reflex 3.5 mmol/L (0.7-2.1)
[2021-07-03 12:16] LABS: Procalcitonin 1.9 ng/mL
[2021-07-03 12:45] LABS: Glucose Point of Care 251 mg/dl (65-105)
[2021-07-03] MEDS: INSULIN ASPART (*BKC) 100 UNITS/ML SUB-Q ×3 (12:47→20:57)
[2021-07-03] MEDS: ALBUMIN HUMAN 25% 25 GM/100 ML 100 ML IVPB ×3 (12:47→23:33)
[2021-07-03 13:51] LABS: Base Excess ABG -1.1 mEq/l (+/-2.0); Fractional Inspired Oxygen 44 %; HCO3 ABG 22.8 mEq/l (22.0-26.0); Oxygen Content ABG 18.6 %vol (16.0-22.0); Oxygen Saturation ABG 98.4 % (95.0-100.0); PCO2 ABG 35.8 mmHg (35.0-45.0); PO2 ABG 117.9 mmHg (80.0-100.0); PO2 FiO2 Ratio Arterial Blood 2.68 %; Total Hemoglobin 13.5 g/dL (12.0-18.0); pH ABG 7.422 (7.350-7.450)
[2021-07-03 13:54] LABS: Device NASAL CANNULA; Site Drawn ARTLINE
--- NOTE | 2021-07-03 13:55 | PM.CNPUL ---
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 patient tells me she was treated with prednisone and she moved to a new house. She later found out that this new house also had mold and ultimately new moved to a 3rd house in [place] approximately 3 years ago. presumably she is not exposed to any additional black mold at this time. Currently the patient complains of weakness after not taking her medicine for week. Presumably she was on prednisone. Suspect her clinical constellation of symptoms is related to adrenal insufficiency. She is currently in the ICU on Levophed and we have decreased her steroids to hydrocortisone 100 mg IV q.8 hours. As patient's stabilizes and is ready to discontinue the IV hydrocortisone would place on prednisone 40 mg a day and decrease by 10 mg a day. Eventually will place back patient back on her azithromycin 250 mg p.o. 3 times a week. Would continue ipratropium 0.5 mg nebs q.4 hours and eventually return to her home dose of Spiriva hand inhaler 18 mcg q.day. Patient is empirically treated with vancomycin, Zosyn and Levaquin pending cultures for possible healthcare associated pneumonia as she was recently admitted to the hospital in April of 2021. It should be noted that she to me she denied any change in her respiratory status, denied fever, chills, rigors, cough, phlegm. Her white blood cell count was 12.9 at admission but she was hypothermic. Regarding her hypersensitivity pneumonitis reviewing her spirometry from [facility] on 06/04/2021: FVC 2.09 L, 62% predicted. FEV1 1.67 L, 65% predicted. FEV1: FVC ratio 80%. Compared to 11/24/2017 there has been no significant change in the pre bronchodilator FVC or FEV1. echocardiogram on 07/03/2020 demonstrates mildly reduced EF of 45-50%, abnormal left ventricular diastolic dysfunction dysfunction, moderately enlarged right ventricle with decreased function, moderately enlarged right atrium, trace mitral regurg, mild tricuspid regurg with an estimated PA SP of 24. There is no evidence of pulmonary hypertension on this echocardiogram. (2) Masses of both breasts: Code(s): N63.10 - Unspecified lump in the right breast, unspecified quadrant; N63.20 - Unspecified lump in the left breast, unspecified quadrant Status: Acute Assessment and Plan: Patient has a CT report of the chest from 08/24/2014 stating numerous soft tissue density nodules in the bilateral breasts, prominent skin thickening in the left axilla, and enlarged bilateral internal mammary lymph nodes may be due to prior breast implant rupture, however breast cancer is not excluded. Recommend correlation with mammography. Currently she has multiple bilateral breast nodules and 1 she is stabilized will consider biopsy. Discussed case with Dr. Ortiz the assistant teacher primary. Inpatient Pulmonary Services will resume on 07/06. Call with questions. History of Present Illness History of Present Illness Consult date: 07/03/21 Requesting physician: Azeb Lyons MD Reason for consult: pulmonary fibrosis Chief complaint: Dyspnea Narrative: 07/03/2021: This is a new Pulmonary consultation for hypersensitivity pneumonitis 75-year-old woman who is followed in Pulmonary Clinic with a history of depression, Status post bilateral silicone breast implants that have been surgically removed with a history of breast nodules dating back on a CT scan report of the chest from 08/24/2014 and hypersensitivity pneumon
[2021-07-03 14:18] LABS: Reflex Lactic Acid Yes or No Add Lactic
[2021-07-03] MEDS: LIDOCAINE HCL 1% PF INJ 5 ML VIAL INFILTRATE (14:30)
--- NOTE | 2021-07-03 14:35 | P.PNCROSS_ITS ---
Event Note Event Note Event Note: I reviewed CT report which stated that patient's central venous catheter was actually in right femoral artery. Confirmed that by discussing case with Dr. Fabrice Moreno with Radiology. I went and examined with ultrasound and did confirm that catheter was in in the artery. ABG was done which confirmed arterial blood. I removed the catheter and held pressure myself for at least 15 minutes. I did not see any swelling or redness at the site after that. Antibiotic cream was applied at the site and dressing was applied. I examined and patient had dorsalis pedis pulse palpable on the right lower extremity, color and cap refill in both feet for symmetric. I will check a h emoglobin in little bit and again in the evening keep an eye on any blood count drop . I explained to patient and her daughter of this complication explained that I have removed the central line and applied pressure for at least 15 minutes. I also updated them with current treatment plan. I spoke to patient's daughter Rosemarie by phone. I updated her with patient's current status including sepsis, I LD, breast masses and current treatment plan. I answered all her questions. Total Critical Care Time - 65 minutes Due to a high probability of clinically significant, life threatening deterioration, the patient required my highest level of preparedness to intervene emergently and I personally spent this critical care time directly and personally managing the patient. This critical care time included obtaining a history; examining the patient; pulse oximetry; ordering and review of studies; arranging urgent treatment with development of a management plan; evaluation of patient's response to treatment; frequent reassessment; and discussions with other providers. It was exclusive of separately billable procedures and treating other patients and teaching time. Please see Assessment and Plan section and the rest of the note for further information on patient assessment and treatment
--- NOTE | 2021-07-03 16:12 | PCRCNOTE ---
Window of time for administration has passed. See next scheduled administration.
[2021-07-03 17:07] LABS: Glucose Point of Care 264 mg/dl (65-105)
[2021-07-03 17:16] LABS: Hematocrit 36.5 % (37.0-47.0); Hemoglobin 12.3 g/dL (12.0-15.0)
[2021-07-03 17:30] LABS: Lactic Acid 2.9 mmol/L (0.7-2.1)
[2021-07-03] MEDS: CENTRAL LINE FLUSH 10 ML IV PUSH (20:21)
[2021-07-03 20:43] LABS: Glucose Point of Care 214 mg/dl (65-105)
[2021-07-03 20:59] LABS: Hematocrit 33.4 % (37.0-47.0); Hemoglobin 11.2 g/dL (12.0-15.0)
[2021-07-04] VITALS (29 sets, daily range): BP systolic 84–120; BP diastolic 34–90; PULSE 72–121; RESP 18–35; TEMP 35.4–36.5; O2SAT 90–97
[2021-07-04] MEDS: IPRATROPIUM BR 0.02% INH SOLN 0.5 MG/2.5 ML VIAL INHALATION ×4 (02:15→20:54)
[2021-07-04 05:58] LABS: Alveolar/Arterial O2 Gradient 91.2 mmHg; Base Excess ABG -0.8 mEq/l (+/-2.0); Carboxyhemoglobin 0.3 % THb (0-2.0); Fractional Inspired Oxygen 32 %; HCO3 ABG 22.9 mEq/l (22.0-26.0); Methemoglobin ABG 0.3 %THb (0-1.5); Oxygen Content ABG 15.6 %vol (16.0-22.0); Oxygen Saturation ABG 97.6 % (95.0-100.0); PCO2 ABG 34.3 mmHg (35.0-45.0); PO2 ABG 96.8 mmHg (80.0-100.0); PO2 FiO2 Ratio Arterial Blood 3.03 %; Reduced Hemoglobin 3.4 %THb (0-5.0); Total Hemoglobin 11.5 g/dL (12.0-18.0); pH ABG 7.442 (7.350-7.450)
[2021-07-04 05:59] LABS: Device NASAL CANNULA; Modified Allen's Test Pass; Site Drawn RIGHT RADIAL
[2021-07-04] MEDS: ALBUMIN HUMAN 25% 25 GM/100 ML 100 ML IVPB ×3 (06:11→17:00)
[2021-07-04] MEDS: PIPERACILLIN/TAZOBACTAM SOD 4.5 GM in SODIUM CHLORIDE 0.9% IV 100 ML 200 ML IVPB ×3 (06:12→17:00)
[2021-07-04] MEDS: CENTRAL LINE FLUSH 10 ML IV PUSH ×3 (06:12→21:27)
[2021-07-04] MEDS: HYDROCORTISONE SODIUM SUCCINATE 100 MG/2 ML VIAL IV PUSH ×3 (06:13→21:27)
[2021-07-04 06:18] LABS: Hematocrit 33.2 % (37.0-47.0); Immature Platelet Fraction Pct 12.9 % (0.9-11.2); Mean Corpuscular HGB Conc 33.1 g/dl (32-36); Mean Corpuscular Hemoglobin 29.6 pg (26-34); Mean Corpuscular Volume 89.2 fl (80-100); Mean Platelet Volume 12.4 fl (7.4-10.4); Platelet Count Result 143 k/mm3 (150-375); Red Blood Count 3.72 M/mm3 (4.2-5.4); Red Cell Distribution Width 16.2 % (11.5-14.5); White Blood Count 20.6 K/mm3 (4.5-10.0)
[2021-07-04 06:30] LABS: Alanine Aminotransferase 38 U/L (4-35); Albumin Level 3.4 g/dL (3.5-5.1); Alkaline Phosphatase 52 U/L (38-126); Anion Gap 7 mmol/L (8-16); Aspartate Amino Transferase 54 U/L (14-36); Bilirubin,Total 0.6 mg/dL (0.2-1.3); Blood Urea Nitrogen 26 mg/dL (7-17); Calcium 8.5 mg/dL (8.4-10.2); Carbon Dioxide 26 mmol/L (22-30); Chloride 103 mmol/L (98-107); Estimated CRCL calculation 53 ml/min; Estimated Glomerular Filt Rate > 60; Glucose 151 mg/dL (65-110); Magnesium 2.4 mg/dL (1.6-2.3); Potassium 3.7 mmol/L (3.4-5.0); Sodium 136 mmol/L (137-145)
[2021-07-04] MEDS: PARoxetine 20 MG TABLET 40 MG PO (08:00)
[2021-07-04] MEDS: ENOXAPARIN 40 MG/0.4 ML SYRINGE SUB-Q (08:00)
[2021-07-04] MEDS: PANTOPRAZOLE SODIUM IV 40 MG VIAL IV PUSH (08:00)
[2021-07-04] MEDS: NOREPINEPHRINE 8 MG/D5W 250 ML 8 MG/250 ML BAG 1.88 MG IV CONT (08:06)
[2021-07-04 08:13] LABS: Glucose Point of Care 186 mg/dl (65-105)
--- NOTE | 2021-07-04 10:31 | WPDINTPN ---
Progress Note: A&P Assessment and Plan (1) Septic shock: Code(s): A41.9 - Sepsis, unspecified organism; R65.21 - Severe sepsis with septic shock Status: Acute Assessment and Plan: her shock appears to be combination of sepsis and cardiogenic patient received close to 3 L of fluid and was not further responsive to fluids continue Levophed titration and she is currently only on 3 mics she is on stress dose steroids check blood culture her UA was negative CT reviewed lactic acid level is improving. will check repeat level continue 25% albumin through today continue broad-spectrum antibiotic antibiotic therapy in the form of vancomycin Zosyn and Levaquin (2) Elevated LFTs: Code(s): R79.89 - Other specified abnormal findings of blood chemistry Status: Acute Assessment and Plan: abdominal ultrasound was unremarkable levels are improving (3) Masses of both breasts: Code(s): N63.10 - Unspecified lump in the right breast, unspecified quadrant; N63.20 - Unspecified lump in the left breast, unspecified quadrant Status: Acute Assessment and Plan: CT shows Multiple bilateral breast masses breast masses, thoracic lymphadenopathy with infiltrative appearing hilar, mediastinal soft tissue. Moderate amount of peripheral predominant. Solid density, acute and/or chronic airspace disease. Given the breast masses and lymphadenopathy, possible lymphangitic carcinomatosis. consult oncology for further guidance on biopsy will plan for breast biopsy next week (4) Right ventricular dysfunction: Code(s): I51.9 - Heart disease, unspecified Status: Acute Assessment and Plan: I suspect patient has cor pulmonale from her interstitial lung disease [place] [id number] [place] [address] [phone] ECHO Summary 1. Complete two-dimensional, color flow and Doppler transthoracic echocardiogram is performed. 2. Left ventricular chamber dimension is mildly enlarged. 3. Definity Contrast administered improved wall motion interpretation. 4. Left ventricular systolic function is mildly reduced, estimated at 45-50%. 5. There is mildly increased left ventricular wall thickness. 6. Left ventricular septal wall motion is abnormal with septal motion related to bundle branch block. 7. The left ventricular diastolic function is abnormal. 8. E/e' 12 is mildly elevated. 9. Right ventricular systolic function is moderately reduced and with abnormal TAPSE 1.3 cm. 10. Right ventricular chamber dimension is moderately enlarged. 11. Right atrial chamber dimension is moderately enlarged. 12. There is trace mitral valve regurgitation. 13. There is mild tricuspid valve regurgitation. 14. No pulmonary hypertension, estimated pulmonary arterial systolic pressure is 24 mmHg. 15. There is trivial pericardial effusion. (5) Chronic respiratory failure with hypoxia: Code(s): J96.11 - Chronic respiratory failure with hypoxia Status: Acute Assessment and Plan: patient has interstitial lung disease and is on oxygen at home. 4 L at rest and up to 8 L on activity pulmonary following. may need a bronchoscopy she is on steroids and broad-spectrum antibiotics (6) ILD (interstitial lung disease): Code(s): J84.9 - Interstitial pulmonary disease, unspecified Status: Acute Assessment and Plan: see above Additional Plan DVT prophylaxis - Lovenox Stress ulcer prophylaxis - PPI Nutrition - regular diet Code Status - patient wishes to be Full Code and wants her daughter Maryanne to be a decision maker if she is unable to make decisions for herself 2/ I spoke to patient's daughter Rosemarie by phone. I updated her with patient's current status including sepsis, I LD, breast masses and current treatment plan. I answered all her questions. Total Critical Care Time - 31 minutes Due to a high probability of clinic
[2021-07-04] MEDS: LACTATED RINGERS 1,000 ML 999 ML IV CONT (12:18)
[2021-07-04 12:29] LABS: Lactic Acid Reflex 2.6 mmol/L (0.7-2.1)
[2021-07-04 12:36] LABS: Glucose Point of Care 247 mg/dl (65-105)
[2021-07-04] MEDS: MIDODRINE HCL 10 MG TABLET PO ×2 (12:51→16:52)
[2021-07-04] MEDS: INSULIN ASPART (*BKC) 100 UNITS/ML SUB-Q (12:51)
--- NOTE | 2021-07-04 13:14 | PM.IMPN ---
Progress Note: A&P Assessment and Plan (1) Septic shock: Code(s): A41.9 - Sepsis, unspecified organism; R65.21 - Severe sepsis with septic shock Status: Acute Assessment and Plan: her shock appears to be combination of sepsis and cardiogenic patient received close to 3 L of fluid and was not further responsive to fluids continue Levophed titration and she is currently only on 3 mics she is on stress dose steroids check blood culture her UA was negative CT reviewed lactic acid level is improving. will check repeat level continue 25% albumin through today continue broad-spectrum antibiotic antibiotic therapy in the form of vancomycin Zosyn and Levaquin 07/04/2021 interval history patient presented emergency department with complaint of shortness of breath CT scan of the chest concerning for breast masses as well as infiltrate and patient was admitted patient was hypoxic and hypotensive was started on Levophed and admitted to ICU also started on broad-spectrum antibiotics, patient is off Levophed patient clinically symptoms are improving patient be transferred out of ICU to IMU, discussed with circuit tester patient is also seen by checker and packer and further recommendation to follow. (2) Elevated LFTs: Code(s): R79.89 - Other specified abnormal findings of blood chemistry Status: Acute Assessment and Plan: abdominal ultrasound was unremarkable levels are improving (3) Masses of both breasts: Code(s): N63.10 - Unspecified lump in the right breast, unspecified quadrant; N63.20 - Unspecified lump in the left breast, unspecified quadrant Status: Acute Assessment and Plan: CT shows Multiple bilateral breast masses breast masses, thoracic lymphadenopathy with infiltrative appearing hilar, mediastinal soft tissue. Moderate amount of peripheral predominant. Solid density, acute and/or chronic airspace disease. Given the breast masses and lymphadenopathy, possible lymphangitic carcinomatosis. consult oncology for further guidance on biopsy will plan for breast biopsy next week (4) Right ventricular dysfunction: Code(s): I51.9 - Heart disease, unspecified Status: Acute Assessment and Plan: I suspect patient has cor pulmonale from her interstitial lung disease [facility] [place] [address] [id number] ECHO Summary 1. Complete two-dimensional, color flow and Doppler transthoracic echocardiogram is performed. 2. Left ventricular chamber dimension is mildly enlarged. 3. Definity Contrast administered improved wall motion interpretation. 4. Left ventricular systolic function is mildly reduced, estimated at 45-50%. 5. There is mildly increased left ventricular wall thickness. 6. Left ventricular septal wall motion is abnormal with septal motion related to bundle branch block. 7. The left ventricular diastolic function is abnormal. 8. E/e' 12 is mildly elevated. 9. Right ventricular systolic function is moderately reduced and with abnormal TAPSE 1.3 cm. 10. Right ventricular chamber dimension is moderately enlarged. 11. Right atrial chamber dimension is moderately enlarged. 12. There is trace mitral valve regurgitation. 13. There is mild tricuspid valve regurgitation. 14. No pulmonary hypertension, estimated pulmonary arterial systolic pressure is 24 mmHg. 15. There is trivial pericardial effusion. (5) Chronic respiratory failure with hypoxia: Code(s): J96.11 - Chronic respiratory failure with hypoxia Status: Acute Assessment and Plan: patient has interstitial lung disease and is on oxygen at home. 4 L at rest and up to 8 L on activity pulmonary following. may need a bronchoscopy she is on steroids and broad-spectrum antibiotics (6) ILD (interstitial lung disease): Code(s): J84.9 - Interstitial pulmonary disease, unspecified Status: Acute Assessment and Plan:
[2021-07-04 15:17] LABS: Reflex Lactic Acid Yes or No Add Lactic
[2021-07-04 16:11] LABS: Lactic Acid 2.2 mmol/L (0.7-2.1)
[2021-07-04 16:25] LABS: Glucose Point of Care 154 mg/dl (65-105)
[2021-07-04 21:42] LABS: Glucose Point of Care 190 mg/dl (65-105)
[2021-07-05] VITALS (16 sets, daily range): BP systolic 92–122; BP diastolic 67–86; PULSE 73–108; RESP 16–30; TEMP 35.7–36.4; O2SAT 88–98
[2021-07-05 00:23] LABS: Vancomycin Trough 8.7 ug/mL (10.0-20.0)
[2021-07-05] MEDS: ALBUMIN HUMAN 25% 25 GM/100 ML 100 ML IVPB ×2 (00:24→05:49)
[2021-07-05] MEDS: PIPERACILLIN/TAZOBACTAM SOD 4.5 GM in SODIUM CHLORIDE 0.9% IV 100 ML 200 ML IVPB ×2 (00:24→05:48)
[2021-07-05] MEDS: IPRATROPIUM BR 0.02% INH SOLN 0.5 MG/2.5 ML VIAL INHALATION ×3 (02:00→22:24)
[2021-07-05 05:18] LABS: Hematocrit 28.6 % (37.0-47.0); Hemoglobin 9.2 g/dL (12.0-15.0); Mean Corpuscular HGB Conc 32.2 g/dl (32-36); Mean Corpuscular Hemoglobin 29.5 pg (26-34); Mean Corpuscular Volume 91.7 fl (80-100); Mean Platelet Volume 12.1 fl (7.4-10.4); Platelet Count Result 135 k/mm3 (150-375); Red Blood Count 3.12 M/mm3 (4.2-5.4); Red Cell Distribution Width 16.8 % (11.5-14.5); White Blood Count 11.7 K/mm3 (4.5-10.0)
[2021-07-05 05:31] LABS: Alanine Aminotransferase 49 U/L (4-35); Albumin Level 3.8 g/dL (3.5-5.1); Alkaline Phosphatase 56 U/L (38-126); Anion Gap 9 mmol/L (8-16); Aspartate Amino Transferase 99 U/L (14-36); Bilirubin,Total 0.4 mg/dL (0.2-1.3); Blood Urea Nitrogen 29 mg/dL (7-17); Calcium 8.6 mg/dL (8.4-10.2); Carbon Dioxide 28 mmol/L (22-30); Chloride 101 mmol/L (98-107); Estimated CRCL calculation 53 ml/min; Estimated Glomerular Filt Rate > 60; Glucose 158 mg/dL (65-110); Magnesium 2.4 mg/dL (1.6-2.3); Potassium 3.7 mmol/L (3.4-5.0); Sodium 138 mmol/L (137-145)
[2021-07-05] MEDS: HYDROCORTISONE SODIUM SUCCINATE 100 MG/2 ML VIAL IV PUSH ×3 (05:49→20:55)
[2021-07-05] MEDS: CENTRAL LINE FLUSH 10 ML IV PUSH ×3 (05:49→20:54)
[2021-07-05 05:50] LABS: Alveolar/Arterial O2 Gradient 84.1 mmHg; Base Excess ABG 2.7 mEq/l (+/-2.0); Carboxyhemoglobin 0.1 % THb (0-2.0); Fractional Inspired Oxygen 28 %; HCO3 ABG 27.4 mEq/l (22.0-26.0); Methemoglobin ABG 0.1 %THb (0-1.5); Oxygen Content ABG 13.6 %vol (16.0-22.0); Oxygen Saturation ABG 93.3 % (95.0-100.0); Oxyhemoglobin 91.6 % THb (90.0-100.0); PCO2 ABG 42.5 mmHg (35.0-45.0); PO2 ABG 65.4 mmHg (80.0-100.0); PO2 FiO2 Ratio Arterial Blood 2.34 %; Reduced Hemoglobin 8.2 %THb (0-5.0); Total Hemoglobin 10.5 g/dL (12.0-18.0); pH ABG 7.427 (7.350-7.450)
[2021-07-05 05:51] LABS: Device NASAL CANNULA; Modified Allen's Test Pass; Site Drawn RIGHT RADIAL
[2021-07-05] MEDS: MIDODRINE HCL 10 MG TABLET PO ×3 (08:36→17:49)
[2021-07-05] MEDS: PARoxetine 20 MG TABLET 40 MG PO (08:36)
[2021-07-05] MEDS: ENOXAPARIN 40 MG/0.4 ML SYRINGE SUB-Q (08:36)
[2021-07-05] MEDS: PANTOPRAZOLE SODIUM IV 40 MG VIAL IV PUSH (08:36)
[2021-07-05 08:37] LABS: Glucose Point of Care 158 mg/dl (65-105)
[2021-07-05] MEDS: INSULIN ASPART (*BKC) 100 UNITS/ML SUB-Q (11:50)
[2021-07-05 11:51] LABS: Glucose Point of Care 275 mg/dl (65-105)
[2021-07-05] MEDS: PIPERACILLIN/TAZOBACTAM SOD 4.5 GM in SODIUM CHLORIDE 0.9% IV 100 ML IVPB ×3 (12:10→23:08)
--- NOTE | 2021-07-05 12:46 | PM.IMPN ---
Progress Note: A&P Assessment and Plan (1) Septic shock: Code(s): A41.9 - Sepsis, unspecified organism; R65.21 - Severe sepsis with septic shock Status: Acute Assessment and Plan: her shock appears to be combination of sepsis and cardiogenic patient received close to 3 L of fluid and was not further responsive to fluids continue Levophed titration and she is currently only on 3 mics she is on stress dose steroids check blood culture her UA was negative CT reviewed lactic acid level is improving. will check repeat level continue 25% albumin through today continue broad-spectrum antibiotic antibiotic therapy in the form of vancomycin Zosyn and Levaquin 07/04/2021 interval history patient presented emergency department with complaint of shortness of breath CT scan of the chest concerning for breast masses as well as infiltrate and patient was admitted patient was hypoxic and hypotensive was started on Levophed and admitted to ICU also started on broad-spectrum antibiotics, patient is off Levophed patient clinically symptoms are improving patient be transferred out of ICU to IMU, discussed with public relations assistant patient is also seen by employment program representative and further recommendation to follow. 07/05/2021 interval history today patient is somnolent unable to provide any review of symptom however remains clinically stable patient blood pressure is 122/78, remains off pressors, chest x-ray done on 06/02/2021 showed airspace disease concerning for pneumonia patient is being treated with levofloxacin and vancomycin patient is also seen by employment program representative and further recommendation to follow, is also found to have extensive breast masses remains clinically stable will continue to monitor and further recommendation to follow. (2) Elevated LFTs: Code(s): R79.89 - Other specified abnormal findings of blood chemistry Status: Acute Assessment and Plan: abdominal ultrasound was unremarkable levels are improving (3) Masses of both breasts: Code(s): N63.10 - Unspecified lump in the right breast, unspecified quadrant; N63.20 - Unspecified lump in the left breast, unspecified quadrant Status: Acute Assessment and Plan: CT shows Multiple bilateral breast masses breast masses, thoracic lymphadenopathy with infiltrative appearing hilar, mediastinal soft tissue. Moderate amount of peripheral predominant. Solid density, acute and/or chronic airspace disease. Given the breast masses and lymphadenopathy, possible lymphangitic carcinomatosis. consult oncology for further guidance on biopsy will plan for breast biopsy next week (4) Right ventricular dysfunction: Code(s): I51.9 - Heart disease, unspecified Status: Acute Assessment and Plan: I suspect patient has cor pulmonale from her interstitial lung disease [facility] [place] [id number] [place] [address] [phone] ECHO Summary 1. Complete two-dimensional, color flow and Doppler transthoracic echocardiogram is performed. 2. Left ventricular chamber dimension is mildly enlarged. 3. Definity Contrast administered improved wall motion interpretation. 4. Left ventricular systolic function is mildly reduced, estimated at 45-50%. 5. There is mildly increased left ventricular wall thickness. 6. Left ventricular septal wall motion is abnormal with septal motion related to bundle branch block. 7. The left ventricular diastolic function is abnormal. 8. E/e' 12 is mildly elevated. 9. Right ventricular systolic function is moderately reduced and with abnormal TAPSE 1.3 cm. 10. Right ventricular chamber dimension is moderately enlarged. 11. Right atrial chamber dimension is moderately enlarged. 12. There is trace mitral valve regurgitation. 13. There is mild tricuspid valve regurgitation. 14. No pulmonary hypertension, estimated pulmonary arterial systolic pressure is 24 mmHg. 15. There is trivial per
--- NOTE | 2021-07-05 14:49 | PC.NURSE ---
This patient, Schuyler Aviles, was transferred to [ [facility]] on 07/05/21 at 1445. Personal belongings sent with patient. Report given to [Candida ]. Appropriate documentation sent with patient.
--- NOTE | 2021-07-05 15:23 | PC.NURSE ---
This patient, Schuyler Aviles, was received from [ICU] on 07/05/21 at 1440. Patient/family oriented to unit policies and routines
[2021-07-05 16:19] LABS: Glucose Point of Care 150 mg/dl (65-105)
[2021-07-05 21:17] LABS: Glucose Point of Care 142 mg/dl (65-105)
[2021-07-06] VITALS (12 sets, daily range): BP systolic 124–140; BP diastolic 75–99; PULSE 75–112; RESP 16–22; TEMP 36.1–36.6; O2SAT 90–94
[2021-07-06] MEDS: IPRATROPIUM BR 0.02% INH SOLN 0.5 MG/2.5 ML VIAL INHALATION ×4 (03:29→20:35)
[2021-07-06] MEDS: PIPERACILLIN/TAZOBACTAM SOD 4.5 GM in SODIUM CHLORIDE 0.9% IV 100 ML IVPB (05:29)
[2021-07-06] MEDS: CENTRAL LINE FLUSH 10 ML IV PUSH ×3 (05:30→23:06)
[2021-07-06] MEDS: HYDROCORTISONE SODIUM SUCCINATE 100 MG/2 ML VIAL IV PUSH (05:30)
[2021-07-06 05:56] LABS: Glucose Point of Care 169 mg/dl (65-105)
[2021-07-06 05:57] LABS: Hematocrit 30.5 % (37.0-47.0); Hemoglobin 9.9 g/dL (12.0-15.0); Mean Corpuscular HGB Conc 32.5 g/dl (32-36); Mean Corpuscular Hemoglobin 29.8 pg (26-34); Mean Corpuscular Volume 91.9 fl (80-100); Mean Platelet Volume 11.9 fl (7.4-10.4); Platelet Count Result 164 k/mm3 (150-375); Red Blood Count 3.32 M/mm3 (4.2-5.4); Red Cell Distribution Width 17.2 % (11.5-14.5); White Blood Count 12.2 K/mm3 (4.5-10.0)
[2021-07-06 06:06] LABS: Alanine Aminotransferase 48 U/L (4-35); Albumin Level 3.7 g/dL (3.5-5.1); Alkaline Phosphatase 56 U/L (38-126); Anion Gap 6 mmol/L (8-16); Aspartate Amino Transferase 62 U/L (14-36); Bilirubin,Total 0.6 mg/dL (0.2-1.3); Blood Urea Nitrogen 30 mg/dL (7-17); Calcium 8.4 mg/dL (8.4-10.2); Carbon Dioxide 30 mmol/L (22-30); Chloride 104 mmol/L (98-107); Estimated CRCL calculation 60 ml/min; Estimated Glomerular Filt Rate > 60; Glucose 159 mg/dL (65-110); Magnesium 2.4 mg/dL (1.6-2.3); Potassium 3.7 mmol/L (3.4-5.0); Sodium 140 mmol/L (137-145)
[2021-07-06 08:09] LABS: Glucose Point of Care 157 mg/dl (65-105)
[2021-07-06] MEDS: PANTOPRAZOLE SODIUM IV 40 MG VIAL IV PUSH (09:04)
--- NOTE | 2021-07-06 09:17 | PC.NURSE ---
Possible biopsy today or tomorrow Lovenox held with PO medication this morning per md.
--- NOTE | 2021-07-06 09:51 | PM.PNPUL ---
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 patient tells me she was treated with prednisone and she moved to a new house. She later found out that this new house also had mold and ultimately new moved to a 3rd house in [place] approximately 3 years ago. presumably she is not exposed to any additional black mold at this time. Currently the patient complains of weakness after not taking her medicine for week. Presumably she was on prednisone. Suspect her clinical constellation of symptoms is related to adrenal insufficiency. She is currently in the ICU on Levophed and we have decreased her steroids to hydrocortisone 100 mg IV q.8 hours. As patient's stabilizes and is ready to discontinue the IV hydrocortisone would place on prednisone 40 mg a day and decrease by 10 mg a day. Eventually will place back patient back on her azithromycin 250 mg p.o. 3 times a week. Would continue ipratropium 0.5 mg nebs q.4 hours and eventually return to her home dose of Spiriva hand inhaler 18 mcg q.day. Patient is empirically treated with vancomycin, Zosyn and Levaquin pending cultures for possible healthcare associated pneumonia as she was recently admitted to the hospital in April of 2021. It should be noted that she to me she denied any change in her respiratory status, denied fever, chills, rigors, cough, phlegm. Her white blood cell count was 12.9 at admission but she was hypothermic. Regarding her hypersensitivity pneumonitis reviewing her spirometry from [facility] on 06/04/2021: FVC 2.09 L, 62% predicted. FEV1 1.67 L, 65% predicted. FEV1: FVC ratio 80%. Compared to 11/24/2017 there has been no significant change in the pre bronchodilator FVC or FEV1. echocardiogram on 07/03/2020 demonstrates mildly reduced EF of 45-50%, abnormal left ventricular diastolic dysfunction dysfunction, moderately enlarged right ventricle with decreased function, moderately enlarged right atrium, trace mitral regurg, mild tricuspid regurg with an estimated PASP of 24. There is no evidence of pulmonary hypertension on this echocardiogram. 07/05 Patient had a blood gas on 2 L nasal cannula the pH of 7.43/43/65. Off levophed and transferred from ICU. 07/06 Patient able to give me more of a history today.. When she was discharged from [facility] she was placed on a steroid taper of 40 mg p.o. x2 weeks, 30 mg p.o. x2 weeks, 20 mg p.o. x2 weeks, 10 mg p.o. x2 weeks, and then off. She had taken 4 days of the 10 mg tablets and her last dose was on 06/26 then she got sick and took no prednisone. Patient tells me she is feeling better. She denies fever, chills, rigors, phlegm production and states that her breathing is back to her normal. She is on 3 L nasal cannula saturations 95%. She does state that she is weak. Patient has been off of Levophed is now out of the intensive care unit. She has diffuse inspiratory crackles bilaterally. I discontinued her vanc and Zosyn today after 5 days as low clinical suspision fro HCAP. Continue levaquin. I changed her hydrocortisone 100 mg IV q.8 hours to her previous prednisone 10 mg a day dose. Aggressive physical therapy. Wean FiO2 as tolerated to keep sats greater than 90. (2) Masses of both breasts: Code(s): N63.10 - Unspecified lump in the right breast, unspecified quadrant; N63.20 - Unspecified lump in the left breast, unspecified quadrant Status: Acute Assessment and Plan: Patient tells me she has had unchanged shani
--- NOTE | 2021-07-06 10:18 | PC.NURSE ---
Per pt this shift, Rosemarie daughter ok to inform about health issues and hospitalization status, daughter wishes to speak with hospitalist Natty LORENZANA, called and informed hospitalist this shift, daughters phone number is [phone].
--- NOTE | 2021-07-06 11:36 | PC.NURSE ---
Patient's home medications removed from bedside. Bottle labeled Alprazolam. There are 2 white pills, 4 half white pills, and 2 green capsules. Verified with Sofia Amador RN.
[2021-07-06] MEDS: predniSONE 10 MG TABLET PO (12:03)
[2021-07-06 12:08] LABS: Glucose Point of Care 300 mg/dl (65-105)
[2021-07-06] MEDS: INSULIN ASPART (*BKC) 100 UNITS/ML SUB-Q (12:08)
[2021-07-06] MEDS: MIDODRINE HCL 10 MG TABLET PO ×2 (12:09→17:23)
--- NOTE | 2021-07-06 12:41 | PDONCCN ---
HPI - Date of Consult Date/Time: 07/06/21 12:41 Requesting Physician: Azeb Lyons MD Primary Care Provider: Jaime Dickey, - Consult Narrative Reason for consult: Bilateral breast masses Narrative: Schuyler Aviles is a 75 year old female with history of interstitial lung disease came into the ER with increasing shortness of breath and generalized weakness. She denies any fever chills. She has some nonproductive cough. CT chest was performed that showed multiple bilateral breast masses with thoracic lymphadenopathy. Patient has a history of bilateral silicon implant in 1960s with subsequent rupture. She denies any previous history of breast cancer. She denies any other history of malignancy. CT abdomen and pelvis showed interstitial pneumonia and fibrosis of lungs. There was L5 compression fracture. And multiple breast masses. Review of Systems - Review of Systems All systems reviewed & are unremarkable except as noted in HPI and bel - Neurologic Reports system reviewed and no additional complaints, except as documented PMFSH Medical History: Medical History (Last Reviewed 07/03/21 @ 09:38 by Julio Ortiz MD) Bronchiectasis Chronic interstitial lung disease Chronic respiratory failure with hypoxia Depression Hypersensitivity pneumonitis Intentional underdosing of medication regimen by patient due to financial hardship Pulmonary fibrosis Right ventricular dysfunction Surgical History: Surgical History (Last Reviewed 07/03/21 @ 09:38 by Julio Ortiz MD) History of appendectomy History of breast implant With subsequent removal. History of hysterectomy History of lung biopsy Right VATS. 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 Family History: Family History (Last Reviewed 07/03/21 @ 09:38 by Julio Ortiz MD) Father Cerebrovascular accident, Onset Age: 93 Family history of Alzheimer's disease, Onset Age: 93 Family history of dementia, Onset Age: 93 Mother Cerebrovascular accident, Onset Age: 91 - Social History Social History: Social History (Last Updated 07/02/21 @ 22:24 by Angela Zhong PA-C) Alcohol Use: Alcohol intake: never Substance Use: Substance use: never Smoking Status: Second hand tobacco smoke exposure: No Smoking end date: 05/30/79 Smoking Pack-years: Smoking packs per day: 2 Smoking cigarettes per day: 40.0 Meds Home Medications Medication Instructions Recorded Confirmed Type dextroamphetamine-amphetamine 20 20 mg PO BID 10/16/19 07/03/21 History mg tablet paroxetine HCl 40 mg tablet 40 mg PO DAILY 10/16/19 07/02/21 History Spiriva with HandiHaler 18 mcg INHALATION QAM 07/02/21 07/02/21 History alprazolam 0.25 mg PO DAILY PRN MDD 0.50 mg 07/02/21 07/03/21 History azithromycin 250 mg PO 3XW 07/02/21 07/02/21 History furosemide 20 mg PO QAM 07/02/21 07/02/21 History prednisone 5 mg PO QAM 07/02/21 07/02/21 History Allergies Allergy/AdvReac Type Severity Reaction Status Date / Time No Known Allergies Allergy Unverified 04/10/21 10:03 Results - Labs CBC & Chem 7: 07/06/21 05:32 07/06/21 05:32 Labs: Short CBC 07/06/21 Range/Units 05:32 WBC 12.2 H (4.5-10.0) K/mm3 Hgb 9.9 L (12.0-15.0) g/dL Hct 30.5 L (37.0-47.0) % Plt Count 164 (150-375) k/mm3 BMP 07/06/21 05:32 Sodium 140 Potassium 3.7 Chloride 104 Carbon Dioxide 30 BUN 30 H Creatinine 0.70 Glucose 159 H Calcium 8.4 Liver Function 07/06/21 Range/Units 05:32 Total Bilirubin 0.6 (0.2-1.3) mg/dL AST 62 H (14-36) U/L ALT 48 H (4-35) U/L Alkaline Phosphatase 56 (38-126) U/L Albumin 3.7 (3.5-5.1) g/dL Assessment and Plan - Additional Plan Bilateral breast masses. Patient is a pleasant 75-year-old female with history of bilateral breast silicone implant in 1960s with subse
--- NOTE | 2021-07-06 12:49 | PM.IMPN ---
Progress Note: A&P Assessment and Plan (1) Septic shock: Code(s): A41.9 - Sepsis, unspecified organism; R65.21 - Severe sepsis with septic shock Status: Acute Assessment and Plan: her shock appears to be combination of sepsis and cardiogenic patient received close to 3 L of fluid and was not further responsive to fluids continue Levophed titration and she is currently only on 3 mics she is on stress dose steroids check blood culture her UA was negative CT reviewed lactic acid level is improving. will check repeat level continue 25% albumin through today continue broad-spectrum antibiotic antibiotic therapy in the form of vancomycin Zosyn and Levaquin 07/04/2021 interval history patient presented emergency department with complaint of shortness of breath CT scan of the chest concerning for breast masses as well as infiltrate and patient was admitted patient was hypoxic and hypotensive was started on Levophed and admitted to ICU also started on broad-spectrum antibiotics, patient is off Levophed patient clinically symptoms are improving patient be transferred out of ICU to IMU, discussed with woodworking craftsman patient is also seen by counter intelligence agent and further recommendation to follow. 07/05/2021 interval history today patient is somnolent unable to provide any review of symptom however remains clinically stable patient blood pressure is 122/78, remains off pressors, chest x-ray done on 06/02/2021 showed airspace disease concerning for pneumonia patient is being treated with levofloxacin and vancomycin patient is also seen by counter intelligence agent and further recommendation to follow, is also found to have extensive breast masses remains clinically stable will continue to monitor and further recommendation to follow. 07/06/2021 interval history today patient is much more alert and oriented states feeling much better not as short of breath, patient blood pressure is 124/75 stable and remains off pressors, chest x-ray done on 06/05/2021 showed airspace disease concerning for pneumonia patient was treated with levofloxacin and vancomycin patient is also seen by counter intelligence agent does not suspect healthcare associated pneumonia and DC vancomycin will continue Levaquin and further recommendation to follow, is also found to have extensive breast masses, patient will have a biopsy tomorrow, patient will be seen by PT OT and will benefit going into acute rehab, remains clinically stable will continue to monitor and further recommendation to follow. spoke with the patient's daughter Peyton and get updates. (2) Elevated LFTs: Code(s): R79.89 - Other specified abnormal findings of blood chemistry Status: Acute Assessment and Plan: abdominal ultrasound was unremarkable levels are improving (3) Masses of both breasts: Code(s): N63.10 - Unspecified lump in the right breast, unspecified quadrant; N63.20 - Unspecified lump in the left breast, unspecified quadrant Status: Acute Assessment and Plan: CT shows Multiple bilateral breast masses breast masses, thoracic lymphadenopathy with infiltrative appearing hilar, mediastinal soft tissue. Moderate amount of peripheral predominant. Solid density, acute and/or chronic airspace disease. Given the breast masses and lymphadenopathy, possible lymphangitic carcinomatosis. consult oncology for further guidance on biopsy will plan for breast biopsy next week (4) Right ventricular dysfunction: Code(s): I51.9 - Heart disease, unspecified Status: Acute Assessment and Plan: I suspect patient has cor pulmonale from her interstitial lung disease [facility] [place] [address] [phone] ECHO Summary 1. Complete two-dimensional, color flow and Doppler transthoracic echocardiogram is performed. 2. Left ventricular chamber dimension is mildly enlarged. 3. Definity Contrast administered improved wall mot
[2021-07-06] MEDS: guaiFENesin 12 HR 600 MG TABCR PO ×2 (13:00→23:04)
--- NOTE | 2021-07-06 13:36 | PC.NURSE ---
Called received for radiology, unable to do breast biopsy without further primary testing such as mammogram and US breast. Hospitalist and oncologist informed. Also informed breast biopsy usually done output surgery.
--- NOTE | 2021-07-06 13:44 | PC.NURSE ---
MD King and MD Lewis informed unable to do breast biospy without more preliminary work up, such as mammogram and US breast.
[2021-07-06 14:03] LABS: Iron 68 ug/dL (37-170)
[2021-07-06 14:08] LABS: Vancomycin Trough 28.6 ug/mL (10.0-20.0)
[2021-07-06 14:12] LABS: Percent Iron Saturation 36 % (20-50)
[2021-07-06 14:52] LABS: Folic Acid 7.2 ng/mL (2.76->20)
--- NOTE | 2021-07-06 15:54 | PC.NURSE ---
vancomycin trough report 28.6 to pharmacist, pharmacist to dose
--- NOTE | 2021-07-06 15:57 | PC.NURSE ---
preliminary BC + for coag neg staphylococcus, reported to Md Chavarria, stated Levaquin covering.
[2021-07-06 16:35] LABS: Glucose Point of Care 146 mg/dl (65-105)
[2021-07-07] VITALS (15 sets, daily range): BP systolic 124–142; BP diastolic 82–93; PULSE 70–102; RESP 18–25; TEMP 36.1–36.4; O2SAT 85–93
[2021-07-07 00:57] LABS: Glucose Point of Care 181 mg/dl (65-105)
[2021-07-07 01:14] LABS: Osmolality, Urine 333 mOsm/kg (50-1200)
[2021-07-07] MEDS: IPRATROPIUM BR 0.02% INH SOLN 0.5 MG/2.5 ML VIAL INHALATION ×4 (02:35→22:27)
[2021-07-07] MEDS: CENTRAL LINE FLUSH 10 ML IV PUSH ×3 (05:23→22:00)
[2021-07-07 05:30] LABS: Hematocrit 32.1 % (37.0-47.0); Hemoglobin 10.3 g/dL (12.0-15.0); Mean Corpuscular HGB Conc 32.1 g/dl (32-36); Mean Corpuscular Hemoglobin 29.5 pg (26-34); Mean Platelet Volume 11.3 fl (7.4-10.4); Platelet Count Result 200 k/mm3 (150-375); Red Blood Count 3.49 M/mm3 (4.2-5.4); Red Cell Distribution Width 17.2 % (11.5-14.5); White Blood Count 16.7 K/mm3 (4.5-10.0)
[2021-07-07 05:41] LABS: Glucose Point of Care 118 mg/dl (65-105)
[2021-07-07 05:41] LABS: Alanine Aminotransferase 56 U/L (4-35); Albumin Level 3.6 g/dL (3.5-5.1); Alkaline Phosphatase 67 U/L (38-126); Anion Gap 3 mmol/L (8-16); Aspartate Amino Transferase 72 U/L (14-36); Bilirubin,Total 0.7 mg/dL (0.2-1.3); Blood Urea Nitrogen 34 mg/dL (7-17); Calcium 8.7 mg/dL (8.4-10.2); Carbon Dioxide 32 mmol/L (22-30); Chloride 104 mmol/L (98-107); Estimated CRCL calculation 60 ml/min; Estimated Glomerular Filt Rate > 60; Glucose 122 mg/dL (65-110); Magnesium 2.4 mg/dL (1.6-2.3); Potassium 4.3 mmol/L (3.4-5.0); Sodium 139 mmol/L (137-145)
[2021-07-07 07:53] LABS: Glucose Point of Care 123 mg/dl (65-105)
[2021-07-07] MEDS: ENOXAPARIN 40 MG/0.4 ML SYRINGE SUB-Q (08:54)
[2021-07-07] MEDS: MIDODRINE HCL 10 MG TABLET PO ×3 (08:55→16:56)
[2021-07-07] MEDS: predniSONE 10 MG TABLET PO (08:55)
[2021-07-07] MEDS: PARoxetine 20 MG TABLET 40 MG PO (08:55)
[2021-07-07] MEDS: guaiFENesin 12 HR 600 MG TABCR PO ×2 (08:55→21:48)
[2021-07-07] MEDS: PANTOPRAZOLE SODIUM IV 40 MG VIAL IV PUSH (08:55)
--- NOTE | 2021-07-07 10:23 | PM.PNPUL ---
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 patient tells me she was treated with prednisone and she moved to a new house. She later found out that this new house also had mold and ultimately new moved to a 3rd house in [place] approximately 3 years ago. presumably she is not exposed to any additional black mold at this time. Currently the patient complains of weakness after not taking her medicine for week. Presumably she was on prednisone. Suspect her clinical constellation of symptoms is related to adrenal insufficiency. She is currently in the ICU on Levophed and we have decreased her steroids to hydrocortisone 100 mg IV q.8 hours. As patient's stabilizes and is ready to discontinue the IV hydrocortisone would place on prednisone 40 mg a day and decrease by 10 mg a day. Eventually will place back patient back on her azithromycin 250 mg p.o. 3 times a week. Would continue ipratropium 0.5 mg nebs q.4 hours and eventually return to her home dose of Spiriva hand inhaler 18 mcg q.day. Patient is empirically treated with vancomycin, Zosyn and Levaquin pending cultures for possible healthcare associated pneumonia as she was recently admitted to the hospital in April of 2021. It should be noted that she to me she denied any change in her respiratory status, denied fever, chills, rigors, cough, phlegm. Her white blood cell count was 12.9 at admission but she was hypothermic. Regarding her hypersensitivity pneumonitis reviewing her spirometry from [facility] on 06/04/2021: FVC 2.09 L, 62% predicted. FEV1 1.67 L, 65% predicted. FEV1: FVC ratio 80%. Compared to 11/24/2017 there has been no significant change in the pre bronchodilator FVC or FEV1. echocardiogram on 07/03/2020 demonstrates mildly reduced EF of 45-50%, abnormal left ventricular diastolic dysfunction dysfunction, moderately enlarged right ventricle with decreased function, moderately enlarged right atrium, trace mitral regurg, mild tricuspid regurg with an estimated PASP of 24. There is no evidence of pulmonary hypertension on this echocardiogram. 07/05 Patient had a blood gas on 2 L nasal cannula the pH of 7.43/43/65. Off levophed and transferred from ICU. 07/06 Patient able to give me more of a history today.. When she was discharged from [facility] she was placed on a steroid taper of 40 mg p.o. x2 weeks, 30 mg p.o. x2 weeks, 20 mg p.o. x2 weeks, 10 mg p.o. x2 weeks, and then off. She had taken 4 days of the 10 mg tablets and her last dose was on 06/26 then she got sick and took no prednisone. Patient tells me she is feeling better. She denies fever, chills, rigors, phlegm production and states that her breathing is back to her normal. She is on 3 L nasal cannula saturations 95%. She does state that she is weak. Patient has been off of Levophed is now out of the intensive care unit. She has diffuse inspiratory crackles bilaterally. I discontinued her vanc and Zosyn today after 5 days as low clinical suspision fro HCAP. Continue levaquin. I changed her hydrocortisone 100 mg IV q.8 hours to her previous prednisone 10 mg a day dose. Aggressive physical therapy. Wean FiO2 as tolerated to keep sats greater than 90. 07/07 overall patient tells me she continues to slowly improve. Currently she is on 4 L nasal cannula saturations 91%. Today is day 6 of 7 of Levaquin. I will restart her home azithromycin 250 mg p.o. Tuesday and Tuesday. From a pulmonary perspective patient is
[2021-07-07 11:23] LABS: Glucose Point of Care 279 mg/dl (65-105)
--- NOTE | 2021-07-07 12:58 | WPDONCPN ---
Progress Note: A/P - Additional Plan Bilateral breast masses. Patient denies any previous history of breast cancer. Breast ultrasound done yesterday showed multiple ill-defined bilateral breast masses. Diagnostic bilateral mammogram was recommended and ordered. CA 15-3 is pending. This will be done as an outpatient. She will follow-up with me as an outpatient. Anemia. She iron level came back normal. Ferritin is elevated. Vitamin B12 is also elevated. This is anemia of acute illness and chronic inflammation. Expecting hemoglobin recovery after recovering from this illness a pneumonitis. - Time Spent With Patient Total time spent is greater than 50% in coordination of care (as documented) at patient's floor/unit and/or counseling patient: 15 - 25 minutes Subjective Interval history: Bilateral breast masses Review of Systems - Review of Systems Patient seems to be in good spirit. She denies any chest pain and abdominal pain. No bleeding and bruising. Complain of tiredness and fatigue. - Neurologic Reports system reviewed and no additional complaints, except as documented Exam Vital signs: Temp Pulse Resp BP Pulse Ox 36.4 C L 99 24 H 142/82 H 91 07/07/21 06:00 07/07/21 09:37 07/07/21 09:37 07/07/21 06:00 07/07/21 09:37 Narrative: Lungs are clear to auscultation bilaterally Cardiovascular regular rate rhythm no murmurs Abdomen soft nontender nondistended bowel sounds are positive Extremities no edema PN: Objective Data - Labs CBC & Chem 7: 07/07/21 05:26 07/07/21 05:26 Labs: Laboratory Results - last 24 hr 07/02/21 07/03/21 07/06/21 23:42 00:36 13:26 WBC RBC Hgb Hct MCV MCH MCHC RDW Plt Count MPV Sodium Potassium Chloride Carbon Dioxide Anion Gap BUN Creatinine Estim Creat Clear Calc Estimated GFR Glucose POC Capillary Glucose Serum Osmolality 277 L Calcium Magnesium Iron TIBC % Saturation Ferritin Total Bilirubin AST ALT Alkaline Phosphatase Total Protein Albumin Vitamin B12 Folate Urine Osmolality 333 Vancomycin Trough 28.6 H 07/06/21 07/06/21 07/06/21 13:27 13:27 16:32 WBC RBC Hgb Hct MCV MCH MCHC RDW Plt Count MPV Sodium Potassium Chloride Carbon Dioxide Anion Gap BUN Creatinine Estim Creat Clear Calc Estimated GFR Glucose POC Capillary Glucose 146 H Serum Osmolality Calcium Magnesium Iron 68 TIBC 188 L % Saturation 36 Ferritin 436.00 H Total Bilirubin AST ALT Alkaline Phosphatase Total Protein Albumin Vitamin B12 982.0 H Folate 7.2 Urine Osmolality Vancomycin Trough 07/06/21 07/07/21 07/07/21 23:13 05:20 05:26 WBC 16.7 H RBC 3.49 L Hgb 10.3 L Hct 32.1 L MCV 92.0 MCH 29.5 MCHC 32.1 RDW 17.2 H Plt Count 200 MPV 11.3 H Sodium Potassium Chloride Carbon Dioxide Anion Gap BUN Creatinine Estim Creat Clear Calc Estimated GFR Glucose POC Capillary Glucose 181 H 118 H Serum Osmolality Calcium Magnesium Iron TIBC % Saturation Ferritin Total Bilirubin AST ALT Alkaline Phosphatase Total Protein Albumin Vitamin B12 Folate Urine Osmolality Vancomycin Trough 07/07/21 07/07/21 07/07/21 05:26 07:49 11:18 WBC RBC Hgb Hct MCV MCH MCHC RDW Plt Count MPV Sodium 139 Potassium 4.3 Chloride 104 Carbon Dioxide 32 H Anion Gap 3 L BUN 34 H Creatinine 0.70 Estim Creat Clear Calc 60 Estimated GFR > 60 Glucose 122 H POC Capillary Glucose 123 H 279 H Serum Osmolality Calcium 8.7 Magnesium 2.4 H Iron TIBC % Saturation Ferritin Total Bilirubin 0.7 AST 7
[2021-07-07] MEDS: INSULIN ASPART (*BKC) 100 UNITS/ML SUB-Q (13:02)
--- NOTE | 2021-07-07 13:13 | PM.IMPN ---
Progress Note: A&P Assessment and Plan (1) Septic shock: Code(s): A41.9 - Sepsis, unspecified organism; R65.21 - Severe sepsis with septic shock Status: Acute Assessment and Plan: her shock appears to be combination of sepsis and cardiogenic patient received close to 3 L of fluid and was not further responsive to fluids continue Levophed titration and she is currently only on 3 mics she is on stress dose steroids check blood culture her UA was negative CT reviewed lactic acid level is improving. will check repeat level continue 25% albumin through today continue broad-spectrum antibiotic antibiotic therapy in the form of vancomycin Zosyn and Levaquin 07/04/2021 interval history patient presented emergency department with complaint of shortness of breath CT scan of the chest concerning for breast masses as well as infiltrate and patient was admitted patient was hypoxic and hypotensive was started on Levophed and admitted to ICU also started on broad-spectrum antibiotics, patient is off Levophed patient clinically symptoms are improving patient be transferred out of ICU to IMU, discussed with air compressor mechanic patient is also seen by mid teacher and further recommendation to follow. 07/05/2021 interval history today patient is somnolent unable to provide any review of symptom however remains clinically stable patient blood pressure is 122/78, remains off pressors, chest x-ray done on 06/02/2021 showed airspace disease concerning for pneumonia patient is being treated with levofloxacin and vancomycin patient is also seen by mid teacher and further recommendation to follow, is also found to have extensive breast masses remains clinically stable will continue to monitor and further recommendation to follow. 07/06/2021 interval history today patient is much more alert and oriented states feeling much better not as short of breath, patient blood pressure is 124/75 stable and remains off pressors, chest x-ray done on 06/05/2021 showed airspace disease concerning for pneumonia patient was treated with levofloxacin and vancomycin patient is also seen by mid teacher does not suspect healthcare associated pneumonia and DC vancomycin will continue Levaquin and further recommendation to follow, is also found to have extensive breast masses, patient will have a biopsy tomorrow, patient will be seen by PT OT and will benefit going into acute rehab, remains clinically stable will continue to monitor and further recommendation to follow. spoke with the patient's daughter Peyton and get updates. 07/07/2021 interval history today patient is much more alert and oriented states feeling much better not as short of breath, patient blood pressure is 142/82 and inceasing stable and remains off pressors, chest x-ray done on 06/05/2021 showed airspace disease concerning for pneumonia patient was treated with levofloxacin and vancomycin patient is also seen by mid teacher does not suspect healthcare associated pneumonia and DC vancomycin will continue Levaquin 6/7d will complete the course tomorrow, and started patient on zithromycin MWF and further recommendation to follow, is also found to have extensive breast masses, seen by oncologist and ordered US guided breast biopsy showed multiple ill-defined bilateral breast masses. to further evaluate patient will need mammogram, patient will be seen by PT OT and will benefit going into acute rehab, remains clinically stable will continue to monitor and further recommendation to follow. spoke with the patient's daughter Peyton and get updates. (2) Elevated LFTs: Code(s): R79.89 - Other specified abnormal findings of blood chemistry Status: Acute Assessment and Plan: abdominal ultrasound was unremarkable levels are improving (3) Masses of both breasts: Code(s): N63.10 - Unspecified lump in the right breast, unspecified quadrant; N63.20 - Unspecified lump in t
[2021-07-07 16:27] LABS: Glucose Point of Care 117 mg/dl (65-105)
[2021-07-07 22:12] LABS: Glucose Point of Care 126 mg/dl (65-105)
[2021-07-08] VITALS (8 sets, daily range): BP systolic 120–134; BP diastolic 80–92; PULSE 60–96; RESP 18–20; TEMP 36.2–36.4; O2SAT 91–96
--- NOTE | 2021-07-08 03:17 | PCRCNOTE ---
Pt on overnight oximetry study. Pt did not receive 0200 meds on 07/08.
--- NOTE | 2021-07-08 05:51 | PCRCNOTE ---
Pt on overnight study. RT omitted 0200 UPD treatment as to not interrupt study.
[2021-07-08] MEDS: CENTRAL LINE FLUSH 10 ML IV PUSH ×3 (05:59→21:02)
[2021-07-08 06:15] LABS: Hematocrit 31.4 % (37.0-47.0); Hemoglobin 10.3 g/dL (12.0-15.0); Mean Corpuscular HGB Conc 32.8 g/dl (32-36); Mean Corpuscular Hemoglobin 29.3 pg (26-34); Mean Corpuscular Volume 89.5 fl (80-100); Mean Platelet Volume 11.3 fl (7.4-10.4); Platelet Count Result 198 k/mm3 (150-375); Red Blood Count 3.51 M/mm3 (4.2-5.4); Red Cell Distribution Width 17.1 % (11.5-14.5); White Blood Count 14.6 K/mm3 (4.5-10.0)
[2021-07-08 06:31] LABS: Glucose Point of Care 117 mg/dl (65-105)
[2021-07-08 06:31] LABS: Alanine Aminotransferase 40 U/L (4-35); Albumin Level 3.2 g/dL (3.5-5.1); Alkaline Phosphatase 62 U/L (38-126); Anion Gap 6 mmol/L (8-16); Aspartate Amino Transferase 48 U/L (14-36); Blood Urea Nitrogen 24 mg/dL (7-17); Calcium 8.1 mg/dL (8.4-10.2); Carbon Dioxide 32 mmol/L (22-30); Chloride 102 mmol/L (98-107); Estimated CRCL calculation 60 ml/min; Estimated Glomerular Filt Rate > 60; Glucose 108 mg/dL (65-110); Magnesium 1.8 mg/dL (1.6-2.3); Potassium 3.5 mmol/L (3.4-5.0); Sodium 140 mmol/L (137-145)
[2021-07-08 07:19] LABS: CA 15-3 33 U/mL (<32)
[2021-07-08 08:12] LABS: Glucose Point of Care 117 mg/dl (65-105)
[2021-07-08] MEDS: IPRATROPIUM BR 0.02% INH SOLN 0.5 MG/2.5 ML VIAL INHALATION (08:17)
--- NOTE | 2021-07-08 09:46 | P.PNPL_ITS ---
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 patient tells me she was treated with prednisone and she moved to a new house. She later found out that this new house also had mold and ultimately new moved to a 3rd house in [place] approximately 3 years ago. presumably she is not exposed to any additional black mold at this time. Currently the patient complains of weakness after not taking her medicine for week. Presumably she was on prednisone. Suspect her clinical constellation of symptoms is related to adrenal insufficiency. She is currently in the ICU on Levophed and we have decreased her steroids to hydrocortisone 100 mg IV q.8 hours. As patient's stabilizes and is ready to discontinue the IV hydrocortisone would place on prednisone 40 mg a day and decrease by 10 mg a day. Eventually will place back patient back on her azithromycin 250 mg p.o. 3 times a week. Would continue ipratropium 0.5 mg nebs q.4 hours and eventually return to her home dose of Spiriva hand inhaler 18 mcg q.day. Patient is empirically treated with vancomycin, Zosyn and Levaquin pending cultures for possible healthcare associated pneumonia as she was recently admitted to the hospital in April of 2021. It should be noted that she to me she denied any change in her respiratory status, denied fever, chills, rigors, cough, phlegm. Her white blood cell count was 12.9 at admission but she was hypothermic. Regarding her hypersensitivity pneumonitis reviewing her spirometry from [facility] on 06/04/2021: FVC 2.09 L, 62% predicted. FEV1 1.67 L, 65% predicted. FEV1: FVC ratio 80%. Compared to 11/24/2017 there has been no significant change in the pre bronchodilator FVC or FEV1. echocardiogram on 07/03/2020 demonstrates mildly reduced EF of 45-50%, abnormal left ventricular diastolic dysfunction dysfunction, moderately enlarged right ventricle with decreased function, moderately enlarged right atrium, trace mitr al regurg, mild tricuspid regurg with an estimated PASP of 24. There is no evidence of pulmonary hypertension on this echocardiogram. 07/05 Patient had a blood gas on 2 L nasal cannula the pH of 7.43/43/65. Off levophed and transferred from ICU. 07/06 Patient able to give me more of a history today.. When she was discharged from [facility] she was placed on a steroid taper of 40 mg p.o. x2 weeks, 30 mg p.o. x2 weeks, 20 mg p.o. x2 weeks, 10 mg p.o. x2 weeks, and then off. She had taken 4 days of the 10 mg tablets and her last dose was on 06/26 then she got sick and took no prednisone. Patient tells me she is feeling better. She denies fever, chills, rigors, phlegm production and states that her breathing is back to her normal. She is on 3 L nasal cannula saturations 95%. She does state that she is weak. Patient has been off of Levophed is now out of the intensive care unit. She has diffuse inspiratory crackles bilaterally. I discontinued her vanc and Zosyn today after 5 days as low clinical suspision fro HCAP. Continue levaquin. I changed her hydrocortisone 100 mg IV q.8 hours to her previous prednisone 10 mg a day dose. Aggressive physical therapy. Wean FiO2 as tolerated to keep sats greater than 90. 07/07 overall patient tells me she continues to slowly impr
--- NOTE | 2021-07-08 09:50 | PCOTNOTE ---
Attempted OT evaluation, upon entering room patient very short of breath and reports needs more oxygen . RN reports can increase O2 from 4L to 6L with activity. Checked O2, patient at 78% on 4L of O2, RN notified, increase to 6L, oxygen increased to 88%-90%. Handed off to RN at this time, will follow and attempt evaluation at later time.
[2021-07-08] MEDS: ENOXAPARIN 40 MG/0.4 ML SYRINGE SUB-Q (10:35)
[2021-07-08] MEDS: PANTOPRAZOLE SODIUM IV 40 MG VIAL IV PUSH (10:35)
[2021-07-08] MEDS: predniSONE 10 MG TABLET PO (10:36)
[2021-07-08] MEDS: guaiFENesin 12 HR 600 MG TABCR PO ×2 (10:36→21:02)
[2021-07-08] MEDS: MIDODRINE HCL 10 MG TABLET PO (10:37)
[2021-07-08] MEDS: PARoxetine 20 MG TABLET 40 MG PO (10:37)
[2021-07-08] MEDS: UMECLIDINIUM BROMIDE 62.5 MCG ELLIPTA 1 PUFF INHALATION (11:50)
[2021-07-08 12:07] LABS: Glucose Point of Care 165 mg/dl (65-105)
--- NOTE | 2021-07-08 14:02 | PCOTNOTE ---
OT evaluation attempted in the PM. Pt reported dizziness and declined OT evaluation at this time. Will attempt again when pt amenable to OT services.
--- NOTE | 2021-07-08 15:09 | PM.IMPN ---
Progress Note: A&P Assessment and Plan (1) Septic shock: Code(s): A41.9 - Sepsis, unspecified organism; R65.21 - Severe sepsis with septic shock Status: Acute Assessment and Plan: her shock appears to be combination of sepsis and cardiogenic patient received close to 3 L of fluid and was not further responsive to fluids continue Levophed titration and she is currently only on 3 mics she is on stress dose steroids check blood culture her UA was negative CT reviewed lactic acid level is improving. will check repeat level continue 25% albumin through today continue broad-spectrum antibiotic antibiotic therapy in the form of vancomycin Zosyn and Levaquin 07/04/2021 interval history patient presented emergency department with complaint of shortness of breath CT scan of the chest concerning for breast masses as well as infiltrate and patient was admitted patient was hypoxic and hypotensive was started on Levophed and admitted to ICU also started on broad-spectrum antibiotics, patient is off Levophed patient clinically symptoms are improving patient be transferred out of ICU to IMU, discussed with content creation manager patient is also seen by artist color separation and further recommendation to follow. 07/05/2021 interval history today patient is somnolent unable to provide any review of symptom however remains clinically stable patient blood pressure is 122/78, remains off pressors, chest x-ray done on 06/02/2021 showed airspace disease concerning for pneumonia patient is being treated with levofloxacin and vancomycin patient is also seen by artist color separation and further recommendation to follow, is also found to have extensive breast masses remains clinically stable will continue to monitor and further recommendation to follow. 07/06/2021 interval history today patient is much more alert and oriented states feeling much better not as short of breath, patient blood pressure is 124/75 stable and remains off pressors, chest x-ray done on 06/05/2021 showed airspace disease concerning for pneumonia patient was treated with levofloxacin and vancomycin patient is also seen by artist color separation does not suspect healthcare associated pneumonia and DC vancomycin will continue Levaquin and further recommendation to follow, is also found to have extensive breast masses, patient will have a biopsy tomorrow, patient will be seen by PT OT and will benefit going into acute rehab, remains clinically stable will continue to monitor and further recommendation to follow. spoke with the patient's daughter Peyton and get updates. 07/07/2021 interval history today patient is much more alert and oriented states feeling much better not as short of breath, patient blood pressure is 142/82 and inceasing stable and remains off pressors, chest x-ray done on 06/05/2021 showed airspace disease concerning for pneumonia patient was treated with levofloxacin and vancomycin patient is also seen by artist color separation does not suspect healthcare associated pneumonia and DC vancomycin will continue Levaquin 6/7d will complete the course tomorrow, and started patient on zithromycin MWF and further recommendation to follow, is also found to have extensive breast masses, seen by oncologist and ordered US guided breast biopsy showed multiple ill-defined bilateral breast masses. to further evaluate patient will need mammogram, patient will be seen by PT OT and will benefit going into acute rehab, remains clinically stable will continue to monitor and further recommendation to follow. spoke with the patient's daughter Peyton and get updates. 07/08/2021 interval history today patient is much more alert and oriented states feeling much better not as short of breath, patient blood pressure is 128/80 and stable and remains off pressors, chest x-ray done on 06/05/2021 showed airspace disease concerning for pneumonia patient was treated with levofloxacin and vancomycin patient is also seen by pulmonologi
[2021-07-08 17:03] LABS: Glucose Point of Care 185 mg/dl (65-105)
[2021-07-08 21:20] LABS: Glucose Point of Care 137 mg/dl (65-105)
--- NOTE | 2021-07-08 22:09 | PCRCNOTE ---
Pt. is unable to perform sleep apnea over night due to high oxygen needs. Pt is on 9 L High Flow therapy
[2021-07-09] VITALS (7 sets, daily range): BP systolic 121–138; BP diastolic 70–79; PULSE 42–96; RESP 18–23; TEMP 36–36.2; O2SAT 93–100
[2021-07-09 06:31] LABS: Glucose Point of Care 101 mg/dl (65-105)
[2021-07-09 08:20] LABS: Glucose Point of Care 105 mg/dl (65-105)
[2021-07-09] MEDS: PANTOPRAZOLE SODIUM IV 40 MG VIAL IV PUSH (09:19)
[2021-07-09] MEDS: guaiFENesin 12 HR 600 MG TABCR PO ×2 (09:21→21:11)
[2021-07-09] MEDS: CENTRAL LINE FLUSH 10 ML IV PUSH ×3 (09:21→21:13)
[2021-07-09] MEDS: ENOXAPARIN 40 MG/0.4 ML SYRINGE SUB-Q (09:22)
[2021-07-09] MEDS: PARoxetine 20 MG TABLET 40 MG PO (09:23)
[2021-07-09] MEDS: UMECLIDINIUM BROMIDE 62.5 MCG ELLIPTA 1 PUFF INHALATION (09:27)
--- NOTE | 2021-07-09 09:58 | P.PNPL_ITS ---
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 patient tells me she was treated with prednisone and she moved to a new house. She later found out that this new house also had mold and ultimately new moved to a 3rd house in [place] approximately 3 years ago. presumably she is not exposed to any additional black mold at this time. Currently the patient complains of weakness after not taking her medicine for week. Presumably she was on prednisone. Suspect her clinical constellation of symptoms is related to adrenal insufficiency. She is currently in the ICU on Levophed and we have decreased her steroids to hydrocortisone 100 mg IV q.8 hours. As patient's stabilizes and is ready to discontinue the IV hydrocortisone would place on prednisone 40 mg a day and decrease by 10 mg a day. Eventually will place back patient back on her azithromycin 250 mg p.o. 3 times a week. Would continue ipratropium 0.5 mg nebs q.4 hours and eventually return to her home dose of Spiriva hand inhaler 18 mcg q.day. Patient is empirically treated with vancomycin, Zosyn and Levaquin pending cultures for possible healthcare associated pneumonia as she was recently admitted to the hospital in April of 2021. It should be noted that she to me she denied any change in her respiratory status, denied fever, chills, rigors, cough, phlegm. Her white blood cell count was 12.9 at admission but she was hypothermic. Regarding her hypersensitivity pneumonitis reviewing her spirometry from [facility] on 06/04/2021: FVC 2.09 L, 62% predicted. FEV1 1.67 L, 65% predicted. FEV1: FVC ratio 80%. Compared to 11/24/2017 there has been no significant change in the pre bronchodilator FVC or FEV1. echocardiogram on 07/03/2020 demonstrates mildly reduced EF of 45-50%, abnormal left ventricular diastolic dysfunction dysfunction, moderately enlarged right ventricle with decreased function, moderately enlarged right atrium, trace mitr al regurg, mild tricuspid regurg with an estimated PASP of 24. There is no evidence of pulmonary hypertension on this echocardiogram. 07/05 Patient had a blood gas on 2 L nasal cannula the pH of 7.43/43/65. Off levophed and transferred from ICU. 07/06 Patient able to give me more of a history today.. When she was discharged from [facility] she was placed on a steroid taper of 40 mg p.o. x2 weeks, 30 mg p.o. x2 weeks, 20 mg p.o. x2 weeks, 10 mg p.o. x2 weeks, and then off. She had taken 4 days of the 10 mg tablets and her last dose was on 06/26 then she got sick and took no prednisone. Patient tells me she is feeling better. She denies fever, chills, rigors, phlegm production and states that her breathing is back to her normal. She is on 3 L nasal cannula saturations 95%. She does state that she is weak. Patient has been off of Levophed is now out of the intensive care unit. She has diffuse inspiratory crackles bilaterally. I discontinued her vanc and Zosyn today after 5 days as low clinical suspision fro HCAP. Continue levaquin. I changed her hydrocortisone 100 mg IV q.8 hours to her previous prednisone 10 mg a day dose. Aggressive physical therapy. Wean FiO2 as tolerated to keep sats greater than 90. 07/07 overall patient tells me she continues to slowly impr
--- NOTE | 2021-07-09 10:00 | PC.NURSE ---
called and updated pt's daughter Rosemarie per pt's request, reviewed pt condition and plan of care
--- NOTE | 2021-07-09 10:04 | PCOTNOTE ---
Attempted to see pt for occupational therapy evaluation. Pt. refused at this time d/t fatigue and O2 needs.
--- NOTE | 2021-07-09 10:15 | PCPTNOTE ---
Patient refused at this time due to feeling week and tired. Patient was educated on the benefits of physical therapy however continues to refuse at this time.
[2021-07-09 11:41] LABS: Glucose Point of Care 221 mg/dl (65-105)
[2021-07-09] MEDS: FUROSEMIDE INJ 40 MG/4 ML VIAL 20 MG IV PUSH (11:44)
[2021-07-09] MEDS: methylPREDNISolone SOD SUCC 40 MG VIAL IV PUSH ×3 (11:44→23:50)
[2021-07-09 11:53] LABS: Glucose Point of Care 187 mg/dl (65-105)
--- NOTE | 2021-07-09 13:08 | PM.IMPN ---
Progress Note: A&P Assessment and Plan (1) Septic shock: Code(s): A41.9 - Sepsis, unspecified organism; R65.21 - Severe sepsis with septic shock Status: Acute Assessment and Plan: her shock appears to be combination of sepsis and cardiogenic patient received close to 3 L of fluid and was not further responsive to fluids continue Levophed titration and she is currently only on 3 mics she is on stress dose steroids check blood culture her UA was negative CT reviewed lactic acid level is improving. will check repeat level continue 25% albumin through today continue broad-spectrum antibiotic antibiotic therapy in the form of vancomycin Zosyn and Levaquin 07/04/2021 interval history patient presented emergency department with complaint of shortness of breath CT scan of the chest concerning for breast masses as well as infiltrate and patient was admitted patient was hypoxic and hypotensive was started on Levophed and admitted to ICU also started on broad-spectrum antibiotics, patient is off Levophed patient clinically symptoms are improving patient be transferred out of ICU to IMU, discussed with cook vegetable patient is also seen by labor commissioner and further recommendation to follow. 07/05/2021 interval history today patient is somnolent unable to provide any review of symptom however remains clinically stable patient blood pressure is 122/78, remains off pressors, chest x-ray done on 06/02/2021 showed airspace disease concerning for pneumonia patient is being treated with levofloxacin and vancomycin patient is also seen by labor commissioner and further recommendation to follow, is also found to have extensive breast masses remains clinically stable will continue to monitor and further recommendation to follow. 07/06/2021 interval history today patient is much more alert and oriented states feeling much better not as short of breath, patient blood pressure is 124/75 stable and remains off pressors, chest x-ray done on 06/05/2021 showed airspace disease concerning for pneumonia patient was treated with levofloxacin and vancomycin patient is also seen by labor commissioner does not suspect healthcare associated pneumonia and DC vancomycin will continue Levaquin and further recommendation to follow, is also found to have extensive breast masses, patient will have a biopsy tomorrow, patient will be seen by PT OT and will benefit going into acute rehab, remains clinically stable will continue to monitor and further recommendation to follow. spoke with the patient's daughter Peyton and get updates. 07/07/2021 interval history today patient is much more alert and oriented states feeling much better not as short of breath, patient blood pressure is 142/82 and inceasing stable and remains off pressors, chest x-ray done on 06/05/2021 showed airspace disease concerning for pneumonia patient was treated with levofloxacin and vancomycin patient is also seen by labor commissioner does not suspect healthcare associated pneumonia and DC vancomycin will continue Levaquin 6/7d will complete the course tomorrow, and started patient on zithromycin MWF and further recommendation to follow, is also found to have extensive breast masses, seen by oncologist and ordered US guided breast biopsy showed multiple ill-defined bilateral breast masses. to further evaluate patient will need mammogram, patient will be seen by PT OT and will benefit going into acute rehab, remains clinically stable will continue to monitor and further recommendation to follow. spoke with the patient's daughter Peyton and get updates. 07/08/2021 interval history today patient is much more alert and oriented states feeling much better not as short of breath, patient blood pressure is 128/80 and stable and remains off pressors, chest x-ray done on 06/05/2021 showed airspace disease concerning for pneumonia patient was treated with levofloxacin and vancomycin patient is also seen by pulmonologi
[2021-07-09 16:23] LABS: Glucose Point of Care 197 mg/dl (65-105)
[2021-07-09 19:37] LABS: Glucose Point of Care 308 mg/dl (65-105)
[2021-07-09] MEDS: INSULIN ASPART (*BKC) 100 UNITS/ML SUB-Q (21:09)
[2021-07-10 05:03] LABS: Glucose Point of Care 115 mg/dl (65-105)
[2021-07-10] MEDS: methylPREDNISolone SOD SUCC 40 MG VIAL IV PUSH ×4 (05:07→23:45)
[2021-07-10] MEDS: CENTRAL LINE FLUSH 10 ML IV PUSH ×3 (05:08→22:00)
[2021-07-10 05:44] LABS: Estimated CRCL calculation 60 ml/min; Estimated Glomerular Filt Rate > 60
[2021-07-10 05:53] VITALS: BP 134/90; PULSE 903; RESP 18; TEMP 35.7; O2SAT 95
[2021-07-10 07:41] LABS: Glucose Point of Care 154 mg/dl (65-105)
[2021-07-10] MEDS: ENOXAPARIN 40 MG/0.4 ML SYRINGE SUB-Q (08:21)
[2021-07-10] MEDS: guaiFENesin 12 HR 600 MG TABCR PO ×2 (08:21→21:22)
[2021-07-10] MEDS: PARoxetine 20 MG TABLET 40 MG PO (08:21)
[2021-07-10] MEDS: AZITHROMYCIN 250 MG TABLET 500 MG PO (08:21)
[2021-07-10] MEDS: PANTOPRAZOLE SODIUM IV 40 MG VIAL IV PUSH (08:21)
[2021-07-10 08:45] VITALS: O2SAT 95
[2021-07-10 08:57] VITALS: O2SAT 95
[2021-07-10] MEDS: UMECLIDINIUM BROMIDE 62.5 MCG ELLIPTA 1 PUFF INHALATION (08:57)
[2021-07-10 09:05] LABS: NT Pro B Type Natriuretic Pept 5520 pg/mL (5-100)
--- NOTE | 2021-07-10 10:26 | P.PNPL_ITS ---
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 patient tells me she was treated with prednisone and she moved to a new house. She later found out that this new house also had mold and ultimately new moved to a 3rd house in [place] approximately 3 years ago. presumably she is not exposed to any additional black mold at this time. Currently the patient complains of weakness after not taking her medicine for week. Presumably she was on prednisone. Suspect her clinical constellation of symptoms is related to adrenal insufficiency. She is currently in the ICU on Levophed and we have decreased her steroids to hydrocortisone 100 mg IV q.8 hours. As patient's stabilizes and is ready to discontinue the IV hydrocortisone would place on prednisone 40 mg a day and decrease by 10 mg a day. Eventually will place back patient back on her azithromycin 250 mg p.o. 3 times a week. Would continue ipratropium 0.5 mg nebs q.4 hours and eventually return to her home dose of Spiriva hand inhaler 18 mcg q.day. Patient is empirically treated with vancomycin, Zosyn and Levaquin pending cultures for possible healthcare associated pneumonia as she was recently admitted to the hospital in April of 2021. It should be noted that she to me she denied any change in her respiratory status, denied fever, chills, rigors, cough, phlegm. Her white blood cell count was 12.9 at admission but she was hypothermic. Regarding her hypersensitivity pneumonitis reviewing her spirometry from [facility] on 06/04/2021: FVC 2.09 L, 62% predicted. FEV1 1.67 L, 65% predicted. FEV1: FVC ratio 80%. Compared to 11/24/2017 there has been no significant change in the pre bronchodilator FVC or FEV1. echocardiogram on 07/03/2020 demonstrates mildly reduced EF of 45-50%, abnormal left ventricular diastolic dysfunction dysfunction, moderately enlarged right ventricle with decreased function, moderately enlarged right atrium, trace mitr al regurg, mild tricuspid regurg with an estimated PASP of 24. There is no evidence of pulmonary hypertension on this echocardiogram. 07/05 Patient had a blood gas on 2 L nasal cannula the pH of 7.43/43/65. Off levophed and transferred from ICU. 07/06 Patient able to give me more of a history today.. When she was discharged from [facility] she was placed on a steroid taper of 40 mg p.o. x2 weeks, 30 mg p.o. x2 weeks, 20 mg p.o. x2 weeks, 10 mg p.o. x2 weeks, and then off. She had taken 4 days of the 10 mg tablets and her last dose was on 06/26 then she got sick and took no prednisone. Patient tells me she is feeling better. She denies fever, chills, rigors, phlegm production and states that her breathing is back to her normal. She is on 3 L nasal cannula saturations 95%. She does state that she is weak. Patient has been off of Levophed is now out of the intensive care unit. She has diffuse inspiratory crackles bilaterally. I discontinued her vanc and Zosyn today after 5 days as low clinical suspision fro HCAP. Continue levaquin. I changed her hydrocortisone 100 mg IV q.8 hours to her previous prednisone 10 mg a day dose. Aggressive physical therapy. Wean FiO2 as tolerated to keep sats greater than 90. 07/07 overall patient tells me she continues to slowly impr
[2021-07-10] MEDS: FUROSEMIDE INJ 40 MG/4 ML VIAL 20 MG IV PUSH (12:04)
[2021-07-10] MEDS: INSULIN ASPART (*BKC) 100 UNITS/ML SUB-Q ×2 (12:21→21:22)
[2021-07-10 12:22] LABS: Glucose Point of Care 318 mg/dl (65-105)
[2021-07-10 14:17] VITALS: BP 126/66; PULSE 78; RESP 16; TEMP 36.2; O2SAT 91
--- NOTE | 2021-07-10 15:23 | PM.IMPN ---
Progress Note: A&P Assessment and Plan (1) Septic shock: Code(s): A41.9 - Sepsis, unspecified organism; R65.21 - Severe sepsis with septic shock Status: Acute Assessment and Plan: her shock appears to be combination of sepsis and cardiogenic patient received close to 3 L of fluid and was not further responsive to fluids continue Levophed titration and she is currently only on 3 mics she is on stress dose steroids check blood culture her UA was negative CT reviewed lactic acid level is improving. will check repeat level continue 25% albumin through today continue broad-spectrum antibiotic antibiotic therapy in the form of vancomycin Zosyn and Levaquin 07/04/2021 interval history patient presented emergency department with complaint of shortness of breath CT scan of the chest concerning for breast masses as well as infiltrate and patient was admitted patient was hypoxic and hypotensive was started on Levophed and admitted to ICU also started on broad-spectrum antibiotics, patient is off Levophed patient clinically symptoms are improving patient be transferred out of ICU to IMU, discussed with dental chairside assistant patient is also seen by abstract manager and further recommendation to follow. 07/05/2021 interval history today patient is somnolent unable to provide any review of symptom however remains clinically stable patient blood pressure is 122/78, remains off pressors, chest x-ray done on 06/02/2021 showed airspace disease concerning for pneumonia patient is being treated with levofloxacin and vancomycin patient is also seen by abstract manager and further recommendation to follow, is also found to have extensive breast masses remains clinically stable will continue to monitor and further recommendation to follow. 07/06/2021 interval history today patient is much more alert and oriented states feeling much better not as short of breath, patient blood pressure is 124/75 stable and remains off pressors, chest x-ray done on 06/05/2021 showed airspace disease concerning for pneumonia patient was treated with levofloxacin and vancomycin patient is also seen by abstract manager does not suspect healthcare associated pneumonia and DC vancomycin will continue Levaquin and further recommendation to follow, is also found to have extensive breast masses, patient will have a biopsy tomorrow, patient will be seen by PT OT and will benefit going into acute rehab, remains clinically stable will continue to monitor and further recommendation to follow. spoke with the patient's daughter Peyton and get updates. 07/07/2021 interval history today patient is much more alert and oriented states feeling much better not as short of breath, patient blood pressure is 142/82 and inceasing stable and remains off pressors, chest x-ray done on 06/05/2021 showed airspace disease concerning for pneumonia patient was treated with levofloxacin and vancomycin patient is also seen by abstract manager does not suspect healthcare associated pneumonia and DC vancomycin will continue Levaquin 6/7d will complete the course tomorrow, and started patient on zithromycin MWF and further recommendation to follow, is also found to have extensive breast masses, seen by oncologist and ordered US guided breast biopsy showed multiple ill-defined bilateral breast masses. to further evaluate patient will need mammogram, patient will be seen by PT OT and will benefit going into acute rehab, remains clinically stable will continue to monitor and further recommendation to follow. spoke with the patient's daughter Peyton and get updates. 07/08/2021 interval history today patient is much more alert and oriented states feeling much better not as short of breath, patient blood pressure is 128/80 and stable and remains off pressors, chest x-ray done on 06/05/2021 showed airspace disease concerning for pneumonia patient was treated with levofloxacin and vancomycin patient is also seen by pulmonologi
[2021-07-10 16:43] LABS: Glucose Point of Care 193 mg/dl (65-105)
[2021-07-10 20:17] LABS: Glucose Point of Care 237 mg/dl (65-105)
[2021-07-10 21:40] VITALS: BP 110/60; PULSE 97; RESP 17; TEMP 36.5; O2SAT 99
[2021-07-11 05:44] VITALS: BP 131/85; PULSE 86; RESP 18; TEMP 37.7; O2SAT 95
[2021-07-11] MEDS: methylPREDNISolone SOD SUCC 40 MG VIAL IV PUSH (06:08)
[2021-07-11] MEDS: CENTRAL LINE FLUSH 10 ML IV PUSH ×3 (06:08→20:41)
[2021-07-11 06:39] LABS: Basophils Absolute Auto 0.1 K/mm3 (0.0-0.1); Basophils Percent Auto 0.2 % (0.2-1.2); Hematocrit 36.2 % (37.0-47.0); Hemoglobin 11.7 g/dL (12.0-15.0); Immature Granulocyte Absolute 0.27 K/mm3 (0.00-0.031); Immature Granulocyte Percent A 1.3 % (0-0.5); Lymphocytes Absolute Auto 0.59 K/mm3 (0.9-3.2); Lymphocytes Percent Auto 2.7 % (18.3-44.2); Mean Corpuscular HGB Conc 32.3 g/dl (32-36); Mean Corpuscular Hemoglobin 29.1 pg (26-34); Mean Platelet Volume 10.5 fl (7.4-10.4); Monocytes Absolute Auto 0.4 K/mm3 (0.1-0.6); Neutrophils Absolute Auto 20.2 K/mm3 (1.3-6.7); Neutrophils Percent Auto 93.8 % (45.5-73.1); Platelet Count Result 299 k/mm3 (150-375); Red Blood Count 4.02 M/mm3 (4.2-5.4); White Blood Count 21.5 K/mm3 (4.5-10.0)
[2021-07-11 06:57] LABS: Alanine Aminotransferase 33 U/L (4-35); Albumin Level 3.4 g/dL (3.5-5.1); Alkaline Phosphatase 59 U/L (38-126); Aspartate Amino Transferase 34 U/L (14-36); Bilirubin,Total 0.6 mg/dL (0.2-1.3); Blood Urea Nitrogen 35 mg/dL (7-17); Calcium 8.2 mg/dL (8.4-10.2); Carbon Dioxide > 40 mmol/L (22-30); Chloride 92 mmol/L (98-107); Estimated CRCL calculation 53 ml/min; Estimated Glomerular Filt Rate > 60; Glucose 154 mg/dL (65-110); Magnesium 2.2 mg/dL (1.6-2.3); Potassium 3.3 mmol/L (3.4-5.0); Sodium 138 mmol/L (137-145)
[2021-07-11 08:07] LABS: Glucose Point of Care 146 mg/dl (65-105)
[2021-07-11] MEDS: UMECLIDINIUM BROMIDE 62.5 MCG ELLIPTA 1 PUFF INHALATION (09:04)
[2021-07-11] MEDS: FUROSEMIDE INJ 40 MG/4 ML VIAL 20 MG IV PUSH (09:06)
[2021-07-11] MEDS: PARoxetine 20 MG TABLET 40 MG PO (09:06)
[2021-07-11] MEDS: guaiFENesin 12 HR 600 MG TABCR PO ×2 (09:06→20:40)
[2021-07-11] MEDS: POTASSIUM CHLORIDE 20 MEQ TABLET 40 MEQ PO (09:06)
[2021-07-11] MEDS: PANTOPRAZOLE SODIUM IV 40 MG VIAL IV PUSH (09:06)
[2021-07-11] MEDS: ENOXAPARIN 40 MG/0.4 ML SYRINGE SUB-Q (09:07)
[2021-07-11 09:20] VITALS: O2SAT 95
--- NOTE | 2021-07-11 11:24 | PM.PNPUL ---
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 patient tells me she was treated with prednisone and she moved to a new house. She later found out that this new house also had mold and ultimately new moved to a 3rd house in [place] approximately 3 years ago. presumably she is not exposed to any additional black mold at this time. Currently the patient complains of weakness after not taking her medicine for week. Presumably she was on prednisone. Suspect her clinical constellation of symptoms is related to adrenal insufficiency. She is currently in the ICU on Levophed and we have decreased her steroids to hydrocortisone 100 mg IV q.8 hours. As patient's stabilizes and is ready to discontinue the IV hydrocortisone would place on prednisone 40 mg a day and decrease by 10 mg a day. Eventually will place back patient back on her azithromycin 250 mg p.o. 3 times a week. Would continue ipratropium 0.5 mg nebs q.4 hours and eventually return to her home dose of Spiriva hand inhaler 18 mcg q.day. Patient is empirically treated with vancomycin, Zosyn and Levaquin pending cultures for possible healthcare associated pneumonia as she was recently admitted to the hospital in April of 2021. It should be noted that she to me she denied any change in her respiratory status, denied fever, chills, rigors, cough, phlegm. Her white blood cell count was 12.9 at admission but she was hypothermic. Regarding her hypersensitivity pneumonitis reviewing her spirometry from [facility] on 06/04/2021: FVC 2.09 L, 62% predicted. FEV1 1.67 L, 65% predicted. FEV1: FVC ratio 80%. Compared to 11/24/2017 there has been no significant change in the pre bronchodilator FVC or FEV1. echocardiogram on 07/03/2020 demonstrates mildly reduced EF of 45-50%, abnormal left ventricular diastolic dysfunction dysfunction, moderately enlarged right ventricle with decreased function, moderately enlarged right atrium, trace mitral regurg, mild tricuspid regurg with an estimated PASP of 24. There is no evidence of pulmonary hypertension on this echocardiogram. 07/05 Patient had a blood gas on 2 L nasal cannula the pH of 7.43/43/65. Off levophed and transferred from ICU. 07/06 Patient able to give me more of a history today.. When she was discharged from [facility] she was placed on a steroid taper of 40 mg p.o. x2 weeks, 30 mg p.o. x2 weeks, 20 mg p.o. x2 weeks, 10 mg p.o. x2 weeks, and then off. She had taken 4 days of the 10 mg tablets and her last dose was on 06/26 then she got sick and took no prednisone. Patient tells me she is feeling better. She denies fever, chills, rigors, phlegm production and states that her breathing is back to her normal. She is on 3 L nasal cannula saturations 95%. She does state that she is weak. Patient has been off of Levophed is now out of the intensive care unit. She has diffuse inspiratory crackles bilaterally. I discontinued her vanc and Zosyn today after 5 days as low clinical suspision fro HCAP. Continue levaquin. I changed her hydrocortisone 100 mg IV q.8 hours to her previous prednisone 10 mg a day dose. Aggressive physical therapy. Wean FiO2 as tolerated to keep sats greater than 90. 07/07 overall patient tells me she continues to slowly improve. Currently she is on 4 L nasal cannula saturations 91%. Today is day 6 of 7 of Levaquin. I will restart her home azithromycin 250 mg p.o. Tuesday and Tuesday. 07/08 Patient continues to slowly improve
--- NOTE | 2021-07-11 11:41 | PM.IMPN ---
Progress Note: A&P Assessment and Plan (1) Septic shock: Code(s): A41.9 - Sepsis, unspecified organism; R65.21 - Severe sepsis with septic shock Status: Acute Assessment and Plan: her shock appears to be combination of sepsis and cardiogenic patient received close to 3 L of fluid and was not further responsive to fluids continue Levophed titration and she is currently only on 3 mics she is on stress dose steroids check blood culture her UA was negative CT reviewed lactic acid level is improving. will check repeat level continue 25% albumin through today continue broad-spectrum antibiotic antibiotic therapy in the form of vancomycin Zosyn and Levaquin 07/04/2021 interval history patient presented emergency department with complaint of shortness of breath CT scan of the chest concerning for breast masses as well as infiltrate and patient was admitted patient was hypoxic and hypotensive was started on Levophed and admitted to ICU also started on broad-spectrum antibiotics, patient is off Levophed patient clinically symptoms are improving patient be transferred out of ICU to IMU, discussed with settlement agent patient is also seen by bevel operator and further recommendation to follow. 07/05/2021 interval history today patient is somnolent unable to provide any review of symptom however remains clinically stable patient blood pressure is 122/78, remains off pressors, chest x-ray done on 06/02/2021 showed airspace disease concerning for pneumonia patient is being treated with levofloxacin and vancomycin patient is also seen by bevel operator and further recommendation to follow, is also found to have extensive breast masses remains clinically stable will continue to monitor and further recommendation to follow. 07/06/2021 interval history today patient is much more alert and oriented states feeling much better not as short of breath, patient blood pressure is 124/75 stable and remains off pressors, chest x-ray done on 06/05/2021 showed airspace disease concerning for pneumonia patient was treated with levofloxacin and vancomycin patient is also seen by bevel operator does not suspect healthcare associated pneumonia and DC vancomycin will continue Levaquin and further recommendation to follow, is also found to have extensive breast masses, patient will have a biopsy tomorrow, patient will be seen by PT OT and will benefit going into acute rehab, remains clinically stable will continue to monitor and further recommendation to follow. spoke with the patient's daughter Peyton and get updates. 07/07/2021 interval history today patient is much more alert and oriented states feeling much better not as short of breath, patient blood pressure is 142/82 and inceasing stable and remains off pressors, chest x-ray done on 06/05/2021 showed airspace disease concerning for pneumonia patient was treated with levofloxacin and vancomycin patient is also seen by bevel operator does not suspect healthcare associated pneumonia and DC vancomycin will continue Levaquin 6/7d will complete the course tomorrow, and started patient on zithromycin MWF and further recommendation to follow, is also found to have extensive breast masses, seen by oncologist and ordered US guided breast biopsy showed multiple ill-defined bilateral breast masses. to further evaluate patient will need mammogram, patient will be seen by PT OT and will benefit going into acute rehab, remains clinically stable will continue to monitor and further recommendation to follow. spoke with the patient's daughter Peyton and get updates. 07/08/2021 interval history today patient is much more alert and oriented states feeling much better not as short of breath, patient blood pressure is 128/80 and stable and remains off pressors, chest x-ray done on 06/05/2021 showed airspace disease concerning for pneumonia patient was treated with levofloxacin and vancomycin patient is also seen by pulmonologi
[2021-07-11 11:49] LABS: Glucose Point of Care 442 mg/dl (65-105)
[2021-07-11] MEDS: INSULIN GLARGINE (*BKC) 100 UNITS/ML 20 UNITS SUB-Q (12:01)
[2021-07-11] MEDS: methylPREDNISolone SOD SUCC 40 MG VIAL 20 MG IV PUSH ×3 (12:01→23:57)
[2021-07-11] MEDS: INSULIN ASPART (*BKC) 100 UNITS/ML SUB-Q ×2 (12:01→17:36)
[2021-07-11 14:01] VITALS: BP 111/58; PULSE 104; RESP 16; TEMP 36.8; O2SAT 100
[2021-07-11 14:09] LABS: Glucose Point of Care 465 mg/dl (65-105)
[2021-07-11 16:43] LABS: Glucose Point of Care 337 mg/dl (65-105)
[2021-07-11 21:55] VITALS: BP 144/87; PULSE 97; RESP 18; TEMP 36.1; O2SAT 98
[2021-07-12 00:02] LABS: Glucose Point of Care 174 mg/dl (65-105)
[2021-07-12 06:00] VITALS: BP 137/83; PULSE 85; RESP 20; TEMP 36.1; O2SAT 100
[2021-07-12] MEDS: CENTRAL LINE FLUSH 10 ML IV PUSH ×3 (07:12→21:00)
[2021-07-12] MEDS: methylPREDNISolone SOD SUCC 40 MG VIAL 20 MG IV PUSH (07:12)
[2021-07-12 07:33] LABS: Glucose Point of Care 119 mg/dl (65-105)
[2021-07-12 08:00] VITALS: O2SAT 100
[2021-07-12] MEDS: FUROSEMIDE INJ 40 MG/4 ML VIAL 20 MG IV PUSH (08:34)
[2021-07-12] MEDS: ENOXAPARIN 40 MG/0.4 ML SYRINGE SUB-Q (08:34)
[2021-07-12] MEDS: guaiFENesin 12 HR 600 MG TABCR PO ×2 (08:34→20:09)
[2021-07-12] MEDS: PARoxetine 20 MG TABLET 40 MG PO (08:35)
[2021-07-12] MEDS: PANTOPRAZOLE SODIUM IV 40 MG VIAL IV PUSH (08:35)
[2021-07-12 08:49] LABS: Blood Urea Nitrogen 32 mg/dL (7-17); Calcium 8.2 mg/dL (8.4-10.2); Carbon Dioxide > 40 mmol/L (22-30); Chloride 96 mmol/L (98-107); Estimated CRCL calculation 53 ml/min; Estimated Glomerular Filt Rate > 60; Glucose 134 mg/dL (65-110); Magnesium 2.1 mg/dL (1.6-2.3); Potassium 3.7 mmol/L (3.4-5.0); Sodium 142 mmol/L (137-145)
[2021-07-12] MEDS: UMECLIDINIUM BROMIDE 62.5 MCG ELLIPTA 1 PUFF INHALATION (09:06)
--- NOTE | 2021-07-12 10:05 | PM.IMPN ---
Progress Note: A&P Assessment and Plan (1) Septic shock: Code(s): A41.9 - Sepsis, unspecified organism; R65.21 - Severe sepsis with septic shock Status: Acute Assessment and Plan: her shock appears to be combination of sepsis and cardiogenic patient received close to 3 L of fluid and was not further responsive to fluids continue Levophed titration and she is currently only on 3 mics she is on stress dose steroids check blood culture her UA was negative CT reviewed lactic acid level is improving. will check repeat level continue 25% albumin through today continue broad-spectrum antibiotic antibiotic therapy in the form of vancomycin Zosyn and Levaquin 07/04/2021 interval history patient presented emergency department with complaint of shortness of breath CT scan of the chest concerning for breast masses as well as infiltrate and patient was admitted patient was hypoxic and hypotensive was started on Levophed and admitted to ICU also started on broad-spectrum antibiotics, patient is off Levophed patient clinically symptoms are improving patient be transferred out of ICU to IMU, discussed with social work specialist patient is also seen by core placer and further recommendation to follow. 07/05/2021 interval history today patient is somnolent unable to provide any review of symptom however remains clinically stable patient blood pressure is 122/78, remains off pressors, chest x-ray done on 06/02/2021 showed airspace disease concerning for pneumonia patient is being treated with levofloxacin and vancomycin patient is also seen by core placer and further recommendation to follow, is also found to have extensive breast masses remains clinically stable will continue to monitor and further recommendation to follow. 07/06/2021 interval history today patient is much more alert and oriented states feeling much better not as short of breath, patient blood pressure is 124/75 stable and remains off pressors, chest x-ray done on 06/05/2021 showed airspace disease concerning for pneumonia patient was treated with levofloxacin and vancomycin patient is also seen by core placer does not suspect healthcare associated pneumonia and DC vancomycin will continue Levaquin and further recommendation to follow, is also found to have extensive breast masses, patient will have a biopsy tomorrow, patient will be seen by PT OT and will benefit going into acute rehab, remains clinically stable will continue to monitor and further recommendation to follow. spoke with the patient's daughter Peyton and get updates. 07/07/2021 interval history today patient is much more alert and oriented states feeling much better not as short of breath, patient blood pressure is 142/82 and inceasing stable and remains off pressors, chest x-ray done on 06/05/2021 showed airspace disease concerning for pneumonia patient was treated with levofloxacin and vancomycin patient is also seen by core placer does not suspect healthcare associated pneumonia and DC vancomycin will continue Levaquin 6/7d will complete the course tomorrow, and started patient on zithromycin MWF and further recommendation to follow, is also found to have extensive breast masses, seen by oncologist and ordered US guided breast biopsy showed multiple ill-defined bilateral breast masses. to further evaluate patient will need mammogram, patient will be seen by PT OT and will benefit going into acute rehab, remains clinically stable will continue to monitor and further recommendation to follow. spoke with the patient's daughter Peyton and get updates. 07/08/2021 interval history today patient is much more alert and oriented states feeling much better not as short of breath, patient blood pressure is 128/80 and stable and remains off pressors, chest x-ray done on 06/05/2021 showed airspace disease concerning for pneumonia patient was treated with levofloxacin and vancomycin patient is also seen by pulmonologi
--- NOTE | 2021-07-12 10:20 | P.PNPL_ITS ---
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 patient tells me she was treated with prednisone and she moved to a new house. She later found out that this new house also had mold and ultimately new moved to a 3rd house in [place] approximately 3 years ago. presumably she is not exposed to any additional black mold at this time. Currently the patient complains of weakness after not taking her medicine for week. Presumably she was on prednisone. Suspect her clinical constellation of symptoms is related to adrenal insufficiency. She is currently in the ICU on Levophed and we have decreased her steroids to hydrocortisone 100 mg IV q.8 hours. As patient's stabilizes and is ready to discontinue the IV hydrocortisone would place on prednisone 40 mg a day and decrease by 10 mg a day. Eventually will place back patient back on her azithromycin 250 mg p.o. 3 times a week. Would continue ipratropium 0.5 mg nebs q.4 hours and eventually return to her home dose of Spiriva hand inhaler 18 mcg q.day. Patient is empirically treated with vancomycin, Zosyn and Levaquin pending cultures for possible healthcare associated pneumonia as she was recently admitted to the hospital in April of 2021. It should be noted that she to me she denied any change in her respiratory status, denied fever, chills, rigors, cough, phlegm. Her white blood cell count was 12.9 at admission but she was hypothermic. Regarding her hypersensitivity pneumonitis reviewing her spirometry from [facility] on 06/04/2021: FVC 2.09 L, 62% predicted. FEV1 1.67 L, 65% predicted. FEV1: FVC ratio 80%. Compared to 11/24/2017 there has been no significant change in the pre bronchodilator FVC or FEV1. echocardiogram on 07/03/2020 demonstrates mildly reduced EF of 45-50%, abnormal left ventricular diastolic dysfunction dysfunction, moderately enlarged right ventricle with decreased function, moderately enlarged right atrium, trace mitr al regurg, mild tricuspid regurg with an estimated PASP of 24. There is no evidence of pulmonary hypertension on this echocardiogram. 07/05 Patient had a blood gas on 2 L nasal cannula the pH of 7.43/43/65. Off levophed and transferred from ICU. 07/06 Patient able to give me more of a history today.. When she was discharged from [facility] she was placed on a steroid taper of 40 mg p.o. x2 weeks, 30 mg p.o. x2 weeks, 20 mg p.o. x2 weeks, 10 mg p.o. x2 weeks, and then off. She had taken 4 days of the 10 mg tablets and her last dose was on 06/26 then she got sick and took no prednisone. Patient tells me she is feeling better. She denies fever, chills, rigors, phlegm production and states that her breathing is back to her normal. She is on 3 L nasal cannula saturations 95%. She does state that she is weak. Patient has been off of Levophed is now out of the intensive care unit. She has diffuse inspiratory crackles bilaterally. I discontinued her vanc and Zosyn today after 5 days as low clinical suspision fro HCAP. Continue levaquin. I changed her hydrocortisone 100 mg IV q.8 hours to her previous prednisone 10 mg a day dose. Aggressive physical therapy. Wean FiO2 as tolerated to keep sats greater than 90. 07/07 overall patient tells me she continues to slowly impr
[2021-07-12 10:21] VITALS: O2SAT 96
[2021-07-12 11:49] LABS: Glucose Point of Care 363 mg/dl (65-105)
[2021-07-12] MEDS: INSULIN ASPART (*BKC) 100 UNITS/ML SUB-Q ×2 (11:50→20:06)
[2021-07-12 14:41] VITALS: BP 135/69; PULSE 97; RESP 22; TEMP 36.6; O2SAT 97
[2021-07-12 17:06] LABS: Glucose Point of Care 200 mg/dl (65-105)
[2021-07-12 19:48] LABS: Glucose Point of Care 229 mg/dl (65-105)
[2021-07-12 20:33] VITALS: O2SAT 95
[2021-07-12 22:00] VITALS: BP 129/74; PULSE 94; RESP 20; TEMP 36.4; O2SAT 94
[2021-07-13 04:59] LABS: Glucose Point of Care 86 mg/dl (65-105)
[2021-07-13] MEDS: CENTRAL LINE FLUSH 10 ML IV PUSH ×3 (05:05→21:47)
[2021-07-13 05:27] VITALS: BP 146/92; PULSE 81; RESP 20; TEMP 36.1; O2SAT 100
[2021-07-13 08:00] VITALS: BP 124/62; PULSE 77; PULSE 81; RESP 18; RESP 20; TEMP 36.5; O2SAT 100; O2SAT 98
[2021-07-13] MEDS: UMECLIDINIUM BROMIDE 62.5 MCG ELLIPTA 1 PUFF INHALATION (08:00)
[2021-07-13] MEDS: AZITHROMYCIN 250 MG TABLET 500 MG PO (08:00)
[2021-07-13] MEDS: ENOXAPARIN 40 MG/0.4 ML SYRINGE SUB-Q (08:01)
[2021-07-13] MEDS: guaiFENesin 12 HR 600 MG TABCR PO ×2 (08:01→21:47)
[2021-07-13] MEDS: PANTOPRAZOLE SODIUM IV 40 MG VIAL IV PUSH (08:01)
[2021-07-13] MEDS: PARoxetine 20 MG TABLET 40 MG PO (08:01)
[2021-07-13] MEDS: predniSONE 20 MG TABLET 40 MG PO (08:01)
[2021-07-13] MEDS: FUROSEMIDE INJ 40 MG/4 ML VIAL 20 MG IV PUSH (08:01)
--- NOTE | 2021-07-13 09:47 | PM.PNPUL ---
Progress Note: A&P Assessment and Plan (1) Chronic respiratory failure with hypoxia: Code(s): J96.11 - Chronic respiratory failure with hypoxia Status: Acute Assessment and Plan: this 75-year-old female with a history of chronic hypersensitivity pneumonitis with hypoxemic respiratory failure on supplemental oxygen presented with acute illness characterized by worsening of her chronic shortness of breath. She had no other respiratory symptoms such as cough with sputum production wheezing fever chills. On admission echocardiogram showed borderline EF in the range of 45-50% and no evidence of elevated pulmonary artery systolic pressure. The patient was tested negative for COVID 19 infection. There were no previous chest CT for comparison purposes. The initial chest CT showed no evidence of pulmonary embolism with bilateral chronic infiltrates, reticulation fibrotic changes and small lung volumes. There was also cardiomegaly on chest CT. The patient has responded to treatment with antibiotics diuretics. She also received treatment with steroids for possible exacerbation of her interstitial lung disease. Currently she is doing better. She stated that she is back at baseline as far as respiratory status. Supplemental oxygen was decreased down to 4 L which is the oxygen flow she has been on chronically. On physical exam she just has crackles and no evidence of JVD or lower extremity edema. Plan is as follows: continue with current treatment for now. Obtain chest x-ray PA and lateral to use as a reference. Will continue with the steroids for now and re-evaluate her in the outpatient clinic regarding continuing steroids. anticipate discharging patient home in a day or so. (2) Hypersensitivity pneumonitis: Code(s): J67.9 - Hypersensitivity pneumonitis due to unspecified organic dust Status: Acute (3) ILD (interstitial lung disease): Code(s): J84.9 - Interstitial pulmonary disease, unspecified Status: Acute Subjective Date/time seen: 07/13/21 09:47 This 75-year-old female has a history of chronic hypersensitivity pneumonitis diagnosed by a biopsy lung biopsy at [facility], previously treated with steroids. The patient has had chronic hypoxemic respiratory failure on supplemental oxygen 4 liters/minute 20/12. The patient was admitted more than a week ago with worsening of shortness of breath. She had no other respiratory symptoms such as chest pain fever chills hemoptysis or worsening of her chronic cough. The patient has been treated with antibiotics and also steroids for lower respiratory tract infection and/or exacerbation of her chronic interstitial lung disease. Currently she is doing better. Her supplemental oxygen was recently decreased down to 4 liters/minute which is at her baseline. She has no new respiratory symptoms. Her cough is about baseline as well. She has no fever chills. Overall her respiratory status has improved over the last several days. Review of Systems Review of Systems: All systems reviewed & are unremarkable except as noted in HPI and below Exam Narrative: GENERAL APPEARANCE: Well developed, well nourished, alert and cooperative, and appears to be in Mild respiratory distress while on supplemental oxygen SKIN: Inspection of the skin reveals no rashes, ulcerations or petechiae. HEENT: Sclerae anicteric and conjunctivae pink and moist. Extraocular movements were intact and pupils were equal, round, and reactive to light. The oral mucosa, hard and soft palate, tongue and posterior pharynx were normal. NECK: Supple. There was no thyroid enlargement, and no tenderness, or masses were felt. CHEST: Normal AP diameter and normal contour without any kyphoscoliosis. LUNGS: Auscultation of the lungs revealed crackles at bases posteriorly no wheezing CARDIAC: There was a regular rate and rhythm without any murmurs, gallops, rubs. ABDOMEN: Soft and nontender with normal bow
--- NOTE | 2021-07-13 11:55 | PCPTNOTE ---
The patient treatment was not able to be completed this date due to patient stating that she was too tired. Will plan to continue treatment per plan of care. RN notified.
[2021-07-13] MEDS: INSULIN ASPART (*BKC) 100 UNITS/ML SUB-Q ×3 (12:54→21:47)
[2021-07-13 12:57] LABS: Glucose Point of Care 237 mg/dl (65-105)
--- NOTE | 2021-07-13 14:40 | PM.IMPN ---
Progress Note: A&P Assessment and Plan (1) Septic shock: Code(s): A41.9 - Sepsis, unspecified organism; R65.21 - Severe sepsis with septic shock Status: Acute Assessment and Plan: her shock appears to be combination of sepsis and cardiogenic patient received close to 3 L of fluid and was not further responsive to fluids continue Levophed titration and she is currently only on 3 mics she is on stress dose steroids check blood culture her UA was negative CT reviewed lactic acid level is improving. will check repeat level continue 25% albumin through today continue broad-spectrum antibiotic antibiotic therapy in the form of vancomycin Zosyn and Levaquin 07/04/2021 interval history patient presented emergency department with complaint of shortness of breath CT scan of the chest concerning for breast masses as well as infiltrate and patient was admitted patient was hypoxic and hypotensive was started on Levophed and admitted to ICU also started on broad-spectrum antibiotics, patient is off Levophed patient clinically symptoms are improving patient be transferred out of ICU to IMU, discussed with dictating machine transcriber patient is also seen by photogeologist and further recommendation to follow. 07/05/2021 interval history today patient is somnolent unable to provide any review of symptom however remains clinically stable patient blood pressure is 122/78, remains off pressors, chest x-ray done on 06/02/2021 showed airspace disease concerning for pneumonia patient is being treated with levofloxacin and vancomycin patient is also seen by photogeologist and further recommendation to follow, is also found to have extensive breast masses remains clinically stable will continue to monitor and further recommendation to follow. 07/06/2021 interval history today patient is much more alert and oriented states feeling much better not as short of breath, patient blood pressure is 124/75 stable and remains off pressors, chest x-ray done on 06/05/2021 showed airspace disease concerning for pneumonia patient was treated with levofloxacin and vancomycin patient is also seen by photogeologist does not suspect healthcare associated pneumonia and DC vancomycin will continue Levaquin and further recommendation to follow, is also found to have extensive breast masses, patient will have a biopsy tomorrow, patient will be seen by PT OT and will benefit going into acute rehab, remains clinically stable will continue to monitor and further recommendation to follow. spoke with the patient's daughter Peyton and get updates. 07/07/2021 interval history today patient is much more alert and oriented states feeling much better not as short of breath, patient blood pressure is 142/82 and inceasing stable and remains off pressors, chest x-ray done on 06/05/2021 showed airspace disease concerning for pneumonia patient was treated with levofloxacin and vancomycin patient is also seen by photogeologist does not suspect healthcare associated pneumonia and DC vancomycin will continue Levaquin 6/7d will complete the course tomorrow, and started patient on zithromycin MWF and further recommendation to follow, is also found to have extensive breast masses, seen by oncologist and ordered US guided breast biopsy showed multiple ill-defined bilateral breast masses. to further evaluate patient will need mammogram, patient will be seen by PT OT and will benefit going into acute rehab, remains clinically stable will continue to monitor and further recommendation to follow. spoke with the patient's daughter Peyton and get updates. 07/08/2021 interval history today patient is much more alert and oriented states feeling much better not as short of breath, patient blood pressure is 128/80 and stable and remains off pressors, chest x-ray done on 06/05/2021 showed airspace disease concerning for pneumonia patient was treated with levofloxacin and vancomycin patient is also seen by pulmonologi
[2021-07-13 16:00] VITALS: BP 120/69; PULSE 92; RESP 18; TEMP 36.2; O2SAT 96
[2021-07-13 18:00] LABS: Glucose Point of Care 325 mg/dl (65-105)
[2021-07-13 20:30] VITALS: PULSE 92; RESP 18; O2SAT 96
[2021-07-13 21:45] LABS: Glucose Point of Care 210 mg/dl (65-105)
[2021-07-14] VITALS (10 sets, daily range): BP systolic 110–126; BP diastolic 62–78; PULSE 85–825; RESP 16–18; TEMP 36.4–37.1; O2SAT 87–100
[2021-07-14 04:41] LABS: Hematocrit 36.7 % (37.0-47.0); Hemoglobin 11.6 g/dL (12.0-15.0); Mean Corpuscular HGB Conc 31.6 g/dl (32-36); Mean Corpuscular Hemoglobin 28.8 pg (26-34); Mean Corpuscular Volume 91.1 fl (80-100); Mean Platelet Volume 10.7 fl (7.4-10.4); Platelet Count Result 279 k/mm3 (150-375); Red Blood Count 4.03 M/mm3 (4.2-5.4); Red Cell Distribution Width 16.5 % (11.5-14.5); White Blood Count 15.3 K/mm3 (4.5-10.0)
[2021-07-14 05:17] LABS: Blood Urea Nitrogen 31 mg/dL (7-17); Calcium 7.4 mg/dL (8.4-10.2); Carbon Dioxide > 40 mmol/L (22-30); Chloride 90 mmol/L (98-107); Estimated CRCL calculation 81 ml/min; Estimated Glomerular Filt Rate > 60; Glucose 88 mg/dL (65-110); Potassium 4.4 mmol/L (3.4-5.0); Sodium 138 mmol/L (137-145)
[2021-07-14] MEDS: CENTRAL LINE FLUSH 10 ML IV PUSH ×3 (06:35→20:46)
[2021-07-14] MEDS: PANTOPRAZOLE SODIUM IV 40 MG VIAL IV PUSH (08:35)
[2021-07-14] MEDS: FUROSEMIDE INJ 40 MG/4 ML VIAL 20 MG IV PUSH (08:35)
[2021-07-14] MEDS: guaiFENesin 12 HR 600 MG TABCR PO ×2 (08:36→20:46)
[2021-07-14] MEDS: PARoxetine 20 MG TABLET 40 MG PO (08:36)
[2021-07-14] MEDS: ENOXAPARIN 40 MG/0.4 ML SYRINGE SUB-Q (08:36)
[2021-07-14] MEDS: predniSONE 20 MG TABLET 40 MG PO (08:36)
[2021-07-14] MEDS: UMECLIDINIUM BROMIDE 62.5 MCG ELLIPTA 1 PUFF INHALATION (09:24)
--- NOTE | 2021-07-14 09:50 | PM.PNPUL ---
Progress Note: A&P Assessment and Plan (1) Chronic respiratory failure with hypoxia: Code(s): J96.11 - Chronic respiratory failure with hypoxia Status: Acute Assessment and Plan: this 75-year-old female with a history of chronic hypersensitivity pneumonitis with hypoxemic respiratory failure on supplemental oxygen presented with acute illness characterized by worsening of her chronic shortness of breath. She had no other respiratory symptoms such as cough with sputum production wheezing fever chills. Patient was hypertensive and received treatment in the intensive care unit with the vasopressors. Also she was on hydrocortisone for possible adrenal insufficiency as she had not taken her medications prior to coming in. On admission echocardiogram showed borderline EF in the range of 45-50% and no evidence of elevated pulmonary artery systolic pressure. currently the patient is back at baseline. On physical exam she continues to have crackles related to chronic hypersensitivity pneumonitis. Her current dose of prednisone is 40 mg. I have decreased prednisone down to 30 mg p.o. starting in a.m. Patient willing to go home. Plan is as follows: I would discharge patient in a.m. and continue with prednisone 30 mg daily with tapering down to 20 mg over the next 2 weeks. I would like to re-evaluate the patient in the outpatient clinic in approximately 2 weeks from hospital discharge. (2) Hypersensitivity pneumonitis: Code(s): J67.9 - Hypersensitivity pneumonitis due to unspecified organic dust Status: Acute (3) ILD (interstitial lung disease): Code(s): J84.9 - Interstitial pulmonary disease, unspecified Status: Acute Subjective Date/time seen: 07/14/21 09:50 Patient has no new respiratory complaints. She thinks she is back at baseline. Currently she is on supplemental oxygen 4 liters/minute. Patient told me that she had been on steroids since early April of 2021. She was hospitalized at another hospital with similar complaints and was told that her symptoms were related to heart failure. She was evaluated by Cardiology and Pulmonary Services at the other hospital. Review of Systems Review of Systems: All systems reviewed & are unremarkable except as noted in HPI and below Exam Narrative: GENERAL APPEARANCE: Well developed, well nourished, alert and cooperative, and appears to be in Mild respiratory distress while on supplemental oxygen SKIN: Inspection of the skin reveals no rashes, ulcerations or petechiae. HEENT: Sclerae anicteric and conjunctivae pink and moist. Extraocular movements were intact and pupils were equal, round, and reactive to light. The oral mucosa, hard and soft palate, tongue and posterior pharynx were normal. NECK: Supple. There was no thyroid enlargement, and no tenderness, or masses were felt. CHEST: Normal AP diameter and normal contour without any kyphoscoliosis. LUNGS: Auscultation of the lungs revealed crackles at bases posteriorly no wheezing CARDIAC: There was a regular rate and rhythm without any murmurs, gallops, rubs. ABDOMEN: Soft and nontender with normal bowel sounds. There was no organomegaly. LYMPH NODES: No lymphadenopathy was appreciated in the neck. EXTREMITIES: No cyanosis, clubbing or edema. NEUROLOGIC: Alert and oriented x 3. Normal affect. Objective Data Vital Signs Vital Signs: Vital Signs - 24 hr 07/13/21 16:00 07/13/21 20:30 07/14/21 00:00 Temperature 36.2 C L 36.4 C L Pulse Rate 92 92 85 Respiratory Rate 18 18 16 Blood Pressure 120/69 126/78 Pulse Oximetry 96 96 100 07/14/21 09:24 Temperature Pulse Rate Respiratory Rate Blood Pressure Pulse Oximetry 95 Intake/Output Intake/Output: Intake & Output 07/11/21 07/12/21 07/13/21 07/14/21 23:59 23:59 23:59 23:59 Intake Total 2059 1170 870 290 Output Total 1999 2400 700 150 Balance 60 -1230 170 140 Meds/Results Medications: Active Medications Generi
[2021-07-14 10:56] LABS: Glucose Point of Care 141 mg/dl (65-105)
[2021-07-14 12:13] LABS: Glucose Point of Care 191 mg/dl (65-105)
--- NOTE | 2021-07-14 13:52 | PM.IMPN ---
Progress Note: A&P Assessment and Plan (1) Septic shock: Code(s): A41.9 - Sepsis, unspecified organism; R65.21 - Severe sepsis with septic shock Status: Acute Assessment and Plan: her shock appears to be combination of sepsis and cardiogenic patient received close to 3 L of fluid and was not further responsive to fluids continue Levophed titration and she is currently only on 3 mics she is on stress dose steroids check blood culture her UA was negative CT reviewed lactic acid level is improving. will check repeat level continue 25% albumin through today continue broad-spectrum antibiotic antibiotic therapy in the form of vancomycin Zosyn and Levaquin 07/04/2021 interval history patient presented emergency department with complaint of shortness of breath CT scan of the chest concerning for breast masses as well as infiltrate and patient was admitted patient was hypoxic and hypotensive was started on Levophed and admitted to ICU also started on broad-spectrum antibiotics, patient is off Levophed patient clinically symptoms are improving patient be transferred out of ICU to IMU, discussed with petroleum transport driver patient is also seen by center punch operator and further recommendation to follow. 07/05/2021 interval history today patient is somnolent unable to provide any review of symptom however remains clinically stable patient blood pressure is 122/78, remains off pressors, chest x-ray done on 06/02/2021 showed airspace disease concerning for pneumonia patient is being treated with levofloxacin and vancomycin patient is also seen by center punch operator and further recommendation to follow, is also found to have extensive breast masses remains clinically stable will continue to monitor and further recommendation to follow. 07/06/2021 interval history today patient is much more alert and oriented states feeling much better not as short of breath, patient blood pressure is 124/75 stable and remains off pressors, chest x-ray done on 06/05/2021 showed airspace disease concerning for pneumonia patient was treated with levofloxacin and vancomycin patient is also seen by center punch operator does not suspect healthcare associated pneumonia and DC vancomycin will continue Levaquin and further recommendation to follow, is also found to have extensive breast masses, patient will have a biopsy tomorrow, patient will be seen by PT OT and will benefit going into acute rehab, remains clinically stable will continue to monitor and further recommendation to follow. spoke with the patient's daughter Peyton and get updates. 07/07/2021 interval history today patient is much more alert and oriented states feeling much better not as short of breath, patient blood pressure is 142/82 and inceasing stable and remains off pressors, chest x-ray done on 06/05/2021 showed airspace disease concerning for pneumonia patient was treated with levofloxacin and vancomycin patient is also seen by center punch operator does not suspect healthcare associated pneumonia and DC vancomycin will continue Levaquin 6/7d will complete the course tomorrow, and started patient on zithromycin MWF and further recommendation to follow, is also found to have extensive breast masses, seen by oncologist and ordered US guided breast biopsy showed multiple ill-defined bilateral breast masses. to further evaluate patient will need mammogram, patient will be seen by PT OT and will benefit going into acute rehab, remains clinically stable will continue to monitor and further recommendation to follow. spoke with the patient's daughter Peyton and get updates. 07/08/2021 interval history today patient is much more alert and oriented states feeling much better not as short of breath, patient blood pressure is 128/80 and stable and remains off pressors, chest x-ray done on 06/05/2021 showed airspace disease concerning for pneumonia patient was treated with levofloxacin and vancomycin patient is also seen by pulmonologi
--- NOTE | 2021-07-14 14:26 | PCRCNOTE ---
Home O2 eval done, 4 L at rest , 6 L with activity. Home o2 is already arranged with [facility] emergency department. Pt has no change in current home o2 settings. Pt has a tank for transport, but unknown where she is D/D to. All other O2 equipment will be at [facility].
--- NOTE | 2021-07-14 14:33 | HOMEO2EVAL ---
Evaluation was performed at [facility] Home Oxygen Evaluation RC: Home Oxygen (O2) Evaluation Start: 07/14/21 08:40 Freq: ONCE Status: Active Protocol: RPE Activity Type Activity Date Activity User E-Sign Co-Sign Detail Recorded Client Recorded Date Recorded By Document 07/14/21 13:50 TRAN [email or web address] 07/14/21 14:26 TRAN Document 07/14/21 13:55 TRAN [email or web address] 07/14/21 14:26 TRAN Document 07/14/21 14:00 TRAN [email or web address] 07/14/21 14:26 TRAN Document 07/14/21 14:01 TRAN [email or web address] 07/14/21 14:26 TRAN Document 07/14/21 14:02 TRAN [email or web address] 07/14/21 14:26 TRAN Document 07/14/21 14:10 TRAN [email or web address] 07/14/21 14:26 TRAN 07/14/21 07/14/21 07/14/21 13:50 13:55 14:00 Home O2 Evaluation Test Phase Resting Resting Exercise Oxygen Delivery Room Air Nasal Cannula Nasal Cannula Oxygen Flow Rate (L/min) 4 4 Pulse Oximetry (90-100 %) 87 L 92 87 L Home Oxygen Evaluation Comments Treatment Charges O2 Evaluation - Inpatient 07/14/21 07/14/21 07/14/21 14:01 14:02 14:10 Home O2 Evaluation Test Phase Exercise Exercise Resting Oxygen Delivery Nasal Cannula Nasal Cannula Nasal Cannula Oxygen Flow Rate (L/min) 5 6 4 Pulse Oximetry (90-100 %) 87 L 89 L 93 Home Oxygen Evaluation Comments Pt requires 4 L at rest and 6 L with activity Treatment Charges
[2021-07-14 16:14] LABS: Glucose Point of Care 266 mg/dl (65-105)
[2021-07-14] MEDS: INSULIN ASPART (*BKC) 100 UNITS/ML SUB-Q (16:31)
[2021-07-14 20:01] LABS: Glucose Point of Care 183 mg/dl (65-105)
[2021-07-15] VITALS (10 sets, daily range): BP systolic 104–122; BP diastolic 52–74; PULSE 58–99; RESP 16–30; TEMP 36.1–36.7; O2SAT 94–99
[2021-07-15 05:25] LABS: Glucose Point of Care 105 mg/dl (65-105)
[2021-07-15] MEDS: CENTRAL LINE FLUSH 10 ML IV PUSH (05:27)
[2021-07-15 05:40] LABS: Blood Urea Nitrogen 28 mg/dL (7-17); Carbon Dioxide > 40 mmol/L (22-30); Chloride 87 mmol/L (98-107); Estimated CRCL calculation 81 ml/min; Estimated Glomerular Filt Rate > 60; Glucose 96 mg/dL (65-110); Sodium 136 mmol/L (137-145)
[2021-07-15 05:42] LABS: Hematocrit 36.2 % (37.0-47.0); Hemoglobin 11.3 g/dL (12.0-15.0); Mean Corpuscular HGB Conc 31.2 g/dl (32-36); Mean Corpuscular Hemoglobin 29.3 pg (26-34); Mean Corpuscular Volume 93.8 fl (80-100); Mean Platelet Volume 10.4 fl (7.4-10.4); Platelet Count Result 263 k/mm3 (150-375); Red Blood Count 3.86 M/mm3 (4.2-5.4); Red Cell Distribution Width 16.5 % (11.5-14.5); White Blood Count 14.5 K/mm3 (4.5-10.0)
[2021-07-15] MEDS: AZITHROMYCIN 250 MG TABLET 500 MG PO (09:20)
[2021-07-15] MEDS: guaiFENesin 12 HR 600 MG TABCR PO ×2 (09:21→20:36)
[2021-07-15] MEDS: predniSONE 20 MG, predniSONE 10 MG 30 MG PO (09:21)
[2021-07-15] MEDS: PARoxetine 20 MG TABLET 40 MG PO (09:22)
[2021-07-15] MEDS: ENOXAPARIN 40 MG/0.4 ML SYRINGE SUB-Q (09:23)
[2021-07-15] MEDS: UMECLIDINIUM BROMIDE 62.5 MCG ELLIPTA 1 PUFF INHALATION (09:50)
[2021-07-15] MEDS: PANTOPRAZOLE 40 MG TABLET PO (11:56)
[2021-07-15] MEDS: FUROSEMIDE 20 MG TABLET PO (11:56)
[2021-07-15 12:22] LABS: Glucose Point of Care 266 mg/dl (65-105)
[2021-07-15] MEDS: INSULIN ASPART (*BKC) 100 UNITS/ML SUB-Q ×2 (12:24→20:53)
--- NOTE | 2021-07-15 14:20 | PM.DS ---
DS: Summary Time Spent with Patient Time attestation: Total time spent providing and/or coordinating discharge services: DS: Data Data Completed and Pending Labs on day of discharge: Labs from last 24 hours 07/15/21 07/15/21 07/15/21 12:20 05:22 05:22 WBC 14.5 H RBC 3.86 L Hgb 11.3 L Hct 36.2 L MCV 93.8 MCH 29.3 MCHC 31.2 L RDW 16.5 H Plt Count 263 MPV 10.4 Sodium 136 L Potassium 4.0 Chloride 87 L Carbon Dioxide > 40 H Anion Gap BUN 28 H Creatinine 0.50 L Estim Creat Clear Calc 81 Estimated GFR > 60 Glucose 96 POC Capillary Glucose 266 H Calcium 8.0 L 07/15/21 07/14/21 07/14/21 05:17 19:58 16:11 WBC RBC Hgb Hct MCV MCH MCHC RDW Plt Count MPV Sodium Potassium Chloride Carbon Dioxide Anion Gap BUN Creatinine Estim Creat Clear Calc Estimated GFR Glucose POC Capillary Glucose 105 183 H 266 H Calcium Discharge Plan Discharge Attending physician on discharge: Azeb Lyons Consulting providers: Srinivasa Espinal ; Victor Hugo Lewis Discharging Clinician: Azeb Lyons Patient Disposition: Home, Self-Care Activity: as tolerated Diet: heart healthy Discharge Instructions: Patient to follow-up with her shearer helper in 2 weeks, to follow up with her primary care patient has possible, patient instructed if any symptoms redeveloped to go to nearest emergency depart. patient to follow-up with her oncologist as soon as possible. Patient Instructions: Antibiotic Form Stand Alone Forms: General Discharge Information Follow-up/Referrals: Victor Hugo Lewis MD [Physician] - Keli,Jaime Cortes MD [Primary Care Provider] - Srinivasa Espinal MD [Physician] - Discharge Medications: New prednisone 5 mg tablet 5 mg PO DAILY Qty: 133 RF: 0 guaifenesin [Mucus Relief ER] 600 mg Tablet Extended Release 12hr 600 mg PO Q12HR Qty: 30 RF: 0 Incruse Ellipta 62.5 mcg/actuation Blister With Device 1 puff inhalation DAILYRT Qty: 1 RF: 0 azithromycin [Zithromax] 250 mg Tablet 500 mg PO MOWEFR@0900 Qty: 12 RF: 0 furosemide 20 mg Tablet 20 mg PO QAM Qty: 30 RF: 0 pantoprazole 40 mg Tablet,Delayed Release (Dr/Ec) 40 mg PO DAILY Qty: 30 RF: 0 Continued paroxetine HCl 40 mg tablet 40 mg PO DAILY RF: 0 dextroamphetamine-amphetamine [Adderall] 20 mg tablet 20 mg PO BID RF: 0 alprazolam tablet 0.25 mg PO DAILY MDD 0.50 mg PRN (Reason: Anxiety) RF: 0 Spiriva with HandiHaler 18 mcg inhalation QAM RF: 0 furosemide 20 mg PO QAM Qty: 30 RF: 0 Held prednisone 5 mg PO QAM RF: 0 Hold Instructions: untill seen by pulomonogist Discontinued azithromycin 250 mg PO 3XW RF: 0 Date of admission: 07/03/21 09:02 Primary Care Provider: Keli,Jaime Cortes Admitting Provider: Azeb Lyons Attending physician on admission: Azeb Lyons Condition: Stable Quality VTE Prophylaxis VTE prophylaxis: mechanical ordered
--- NOTE | 2021-07-15 14:51 | PC.NURSE ---
On 07/15/21, the student, Kathy Griffith, provided care and completed [facility] documentation on this patient. I have reviewed the student's documentation and agree with the findings.
[2021-07-15 16:21] LABS: Glucose Point of Care 183 mg/dl (65-105)
--- NOTE | 2021-07-15 16:50 | PC.NURSE ---
This nurse spoke with patient's sister, Kendal regarding discharge plan per patient. Per Kendal, she is unable to care for patient upon discharge and was unaware that patient wanted to stay with her or that she would be picking her up upon discharge. She is unsure as to where the patient would be staying but did not feel comfortable taking on her medical needs. ER Grill Cook made aware. Kendal noted that brother is willing to drive from [facility] to drive patient to [place] but would need a notice and if patient had a place to stay when she got there. [employer], patient's DME, dropped off two oxygen tanks for discharge but they need an address to deliver medical supplies, including oxygen concentrator.
--- NOTE | 2021-07-15 18:35 | PCCCNOTE ---
Called by bedside RN, Ada to notify that patient's sister will not pick her up let her stay at her house. There is no address for patient to have her oxygen tanks sent to. Met with patient and bedside RN at patient's bedside. Patient understands that she has to have an alternative plan since her sister is refusing to let her stay. Patient continues to refuse placement to SNF. Patient verbalizes understanding that she has to work on new dc plan. States that neighbor Eddishannon Rush can drive her to a new hotel. Patient is requesting a list of phone numbers to local hotels to start to call. Patient states that one issues is that her wallet with her credit card is locked in safe at [facility] in [place]. Commercial Attache compiled a list of phone numbers for hotels near [facility] and provided to the patient. Patient advised to start calling to find a new hotel. Patient also states that if she can not make a hotel reservation w/o her credit card that she will call [facility]. Called to Eddi Victor Manuel at [phone], he confirms that he could help with transportation tomorrow after work 5pm. Bedside RN Ada spoke with Kendal who is agreeable to go by [facility] and get her belongings from the safe like cell phone, wallet, chargers and bring to the hospital around 9:30-10 tomorrow 07/16/21.
[2021-07-15 20:44] LABS: Glucose Point of Care 259 mg/dl (65-105)
[2021-07-16] MEDS: MORPHINE SULFATE (*CRX) 2 MG/ML INJ 1 MG IV PUSH (00:36)
[2021-07-16 04:32] LABS: Glucose Point of Care 92 mg/dl (65-105)
[2021-07-16 06:00] VITALS: BP 129/83; PULSE 83; RESP 20; TEMP 36.1; O2SAT 99
[2021-07-16 06:37] LABS: Hematocrit 35.6 % (37.0-47.0); Hemoglobin 11.6 g/dL (12.0-15.0); Mean Corpuscular HGB Conc 32.6 g/dl (32-36); Mean Corpuscular Hemoglobin 29.2 pg (26-34); Mean Corpuscular Volume 89.7 fl (80-100); Mean Platelet Volume 10.3 fl (7.4-10.4); Platelet Count Result 270 k/mm3 (150-375); Red Blood Count 3.97 M/mm3 (4.2-5.4); Red Cell Distribution Width 16.2 % (11.5-14.5); White Blood Count 14.1 K/mm3 (4.5-10.0)
[2021-07-16 07:02] LABS: Blood Urea Nitrogen 23 mg/dL (7-17); Calcium 8.4 mg/dL (8.4-10.2); Carbon Dioxide > 40 mmol/L (22-30); Chloride 91 mmol/L (98-107); Estimated CRCL calculation 69 ml/min; Estimated Glomerular Filt Rate > 60; Glucose 91 mg/dL (65-110); Potassium 3.9 mmol/L (3.4-5.0); Sodium 134 mmol/L (137-145)
[2021-07-16 08:00] VITALS: PULSE 83; RESP 20; O2SAT 93
[2021-07-16 08:39] LABS: Glucose Point of Care 91 mg/dl (65-105)
[2021-07-16] MEDS: UMECLIDINIUM BROMIDE 62.5 MCG ELLIPTA 1 PUFF INHALATION (08:58)
[2021-07-16 09:04] VITALS: O2SAT 93
[2021-07-16] MEDS: predniSONE 20 MG, predniSONE 10 MG 30 MG PO (09:46)
[2021-07-16] MEDS: guaiFENesin 12 HR 600 MG TABCR PO (09:46)
[2021-07-16] MEDS: PANTOPRAZOLE 40 MG TABLET PO (09:46)
[2021-07-16] MEDS: FUROSEMIDE 20 MG TABLET PO (09:46)
[2021-07-16] MEDS: PARoxetine 20 MG TABLET 40 MG PO (09:46)
[2021-07-16] MEDS: ENOXAPARIN 40 MG/0.4 ML SYRINGE SUB-Q (09:47)
--- NOTE | 2021-07-16 11:41 | PM.DS ---
DS: Admitting Diagnosis Discharge Date 07/16/2021 Admitting Diagnosis Weakness and shortness of breath. DS: Discharge Diagnosis Discharge Diagnosis (1) Septic shock: Code(s): A41.9 - Sepsis, unspecified organism; R65.21 - Severe sepsis with septic shock Status: Acute Assessment and Plan: her shock appears to be combination of sepsis and cardiogenic patient received close to 3 L of fluid and was not further responsive to fluids continue Levophed titration and she is currently only on 3 mics she is on stress dose steroids check blood culture her UA was negative CT reviewed lactic acid level is improving. will check repeat level continue 25% albumin through today continue broad-spectrum antibiotic antibiotic therapy in the form of vancomycin Zosyn and Levaquin 07/04/2021 interval history patient presented emergency department with complaint of shortness of breath CT scan of the chest concerning for breast masses as well as infiltrate and patient was admitted patient was hypoxic and hypotensive was started on Levophed and admitted to ICU also started on broad-spectrum antibiotics, patient is off Levophed patient clinically symptoms are improving patient be transferred out of ICU to IMU, discussed with paper cutter operator patient is also seen by computer programming professor and further recommendation to follow. 07/05/2021 interval history today patient is somnolent unable to provide any review of symptom however remains clinically stable patient blood pressure is 122/78, remains off pressors, chest x-ray done on 06/02/2021 showed airspace disease concerning for pneumonia patient is being treated with levofloxacin and vancomycin patient is also seen by computer programming professor and further recommendation to follow, is also found to have extensive breast masses remains clinically stable will continue to monitor and further recommendation to follow. 07/06/2021 interval history today patient is much more alert and oriented states feeling much better not as short of breath, patient blood pressure is 124/75 stable and remains off pressors, chest x-ray done on 06/05/2021 showed airspace disease concerning for pneumonia patient was treated with levofloxacin and vancomycin patient is also seen by computer programming professor does not suspect healthcare associated pneumonia and DC vancomycin will continue Levaquin and further recommendation to follow, is also found to have extensive breast masses, patient will have a biopsy tomorrow, patient will be seen by PT OT and will benefit going into acute rehab, remains clinically stable will continue to monitor and further recommendation to follow. spoke with the patient's daughter Peyton and get updates. 07/07/2021 interval history today patient is much more alert and oriented states feeling much better not as short of breath, patient blood pressure is 142/82 and inceasing stable and remains off pressors, chest x-ray done on 06/05/2021 showed airspace disease concerning for pneumonia patient was treated with levofloxacin and vancomycin patient is also seen by computer programming professor does not suspect healthcare associated pneumonia and DC vancomycin will continue Levaquin 6/7d will complete the course tomorrow, and started patient on zithromycin MWF and further recommendation to follow, is also found to have extensive breast masses, seen by oncologist and ordered US guided breast biopsy showed multiple ill-defined bilateral breast masses. to further evaluate patient will need mammogram, patient will be seen by PT OT and will benefit going into acute rehab, remains clinically stable will continue to monitor and further recommendation to follow. spoke with the patient's daughter Peyton and get updates. 07/08/2021 interval history today patient is much more alert and oriented states feeling much better not as short of breath, patient blood pressure is 128/80 and stable and remains off pressors, chest x-ray done on 06/05/2021 showed airspace disea
[2021-07-16 11:59] LABS: Glucose Point of Care 248 mg/dl (65-105)
[2021-07-16] MEDS: INSULIN ASPART (*BKC) 100 UNITS/ML SUB-Q (13:06)
--- NOTE | 2021-07-16 16:40 | PC.NURSE ---
Pt discharged. Private car transport. Voided x2 since coyle removed. Instructions given. Verbalized understanding. States she will get prescription medications at her pharmacy tomorrow. Assisted to car per staff members. O2 tanks provided. Oxygen concentrator to be delivered this evening or in the AM per pt report.
== END 2021-07-16 14:40 | disposition home or self-care (01) | DRG 871 ==
LOC: ANHED 16:52 → ANH2MED 18:46 → ANHIMU 07-03 03:58 → ANHICU 07-03 05:02 → ANH3MEDSUR 07-05 15:55
PROVIDERS: Internal Medicine; Internal Medicine Hematology & Oncology; Internal Medicine Pulmonary Disease; Physician Assistant; Admitting Provider Family Medicine; Emergency Provider Emergency Medicine; PCP Internal Medicine; Visit Provider Family Medicine
DX: A41.9 Sepsis, unspecified organism (principal); R65.21 Severe sepsis with septic shock; R57.0 Cardiogenic shock; J18.9 Pneumonia, unspecified organism; J96.11 Chronic respiratory failure with hypoxia; E87.1 Hypo-osmolality and hyponatremia; E27.40 Unspecified adrenocortical insufficiency; Z99.81 Dependence on supplemental oxygen; Z20.822 Contact with and (suspected) exposure to COVID-19; F17.210 Nicotine dependence, cigarettes, uncomplicated; R59.0 Localized enlarged lymph nodes; J84.10 Pulmonary fibrosis, unspecified; N63.10 Unspecified lump in the right breast, unspecified quadrant; N63.20 Unspecified lump in the left breast, unspecified quadrant; D69.6 Thrombocytopenia, unspecified; R79.89 Other specified abnormal findings of blood chemistry; I51.9 Heart disease, unspecified; R68.0 Hypothermia, not associated with low environmental temperature; I27.81 Cor pulmonale (chronic); D63.8 Anemia in other chronic diseases classified elsewhere; Z91.14 Patient's other noncompliance with medication regimen
CPT/HCPCS: 36415; 36569; 36600; 71045; 71046; 71275; 74176; 76641; 76705; 80048; 80053; 80074; 80202; 81001; 82375; 82565; 82570; 82607; 82728; 82746; 82805; 82948; 83036; 83050; 83540; 83550; 83605; 83735; 83880; 83930; 83935; 84145; 84300; 84443; 84484; 85014; 85018; 85025; 85027; 85055; 85610; 85730; 86140; 86300; 87040; 87077; 87181; 87186; 87502; 87804; 93005; 94618; 94640; 94762; 96365; 96366; 96367; 96375; 96376; 97110; 97161; 97165; 97530; 97535; 99285; A9270; C1751; C8929; C9113; C9803; G0378; J1650; J1720; J1815; J1940; J1956; J2270; J2543; J2920; J2930; J3370; J7030; J7040; J7120; J7512; P9047; Q9957; Q9967; U0003; U0005

== ENCOUNTER 2021-11-17 14:36 | Emergency (ER) | payer MEDICARE, SELFPAY ==
[2021-11-17] VITALS (13 sets, daily range): BP systolic 91–116; BP diastolic 57–92; PULSE 79–110; RESP 19–31; TEMP 36.7; O2SAT 88–100
--- NOTE | ~2021-11-17 | XR_ITS ---
EXAMINATION: XR chest 1V portable INDICATION: Shortness of breath, history of interstitial lung disease TECHNIQUE: Portable AP chest at 1635 hours COMPARISON: 07/14/2021 FINDINGS: There are chronic, diffuse interstitial opacities which appear slightly worsened since the comparison examination. The heart size is upper limits of normal for technique. No pleural effusion o r pneumothorax. There is osteoarthritis of the shoulders. IMPRESSION: 1. Chronic interstitial lung disease with increase interstitial opacities, consistent with worsening lung disease versus superimposed pulmonary edema or infection. Reviewed, dictated and finalized at location A. IMPRESSION: 1. Chronic interstitial lung disease with increase interstitial opacities, cons istent with worsening lung disease versus superimposed pulmonary edema or infec tion.
[2021-11-17 15:49] LABS: Basophils Percent Auto 0.3 % (0.2-1.2); Eosinophils Absolute Auto 0.3 K/mm3 (0-0.3); Eosinophils Percent Auto 3.2 % (0-4.4); Hematocrit 37.3 % (37.0-47.0); Immature Granulocyte Absolute 0.03 K/mm3 (0.00-0.031); Immature Granulocyte Percent A 0.3 % (0-0.5); Lymphocytes Absolute Auto 2.09 K/mm3 (0.9-3.2); Lymphocytes Percent Auto 22.9 % (18.3-44.2); Mean Corpuscular HGB Conc 32.2 g/dl (32-36); Mean Corpuscular Hemoglobin 29.5 pg (26-34); Mean Corpuscular Volume 91.6 fl (80-100); Mean Platelet Volume 9.7 fl (7.4-10.4); Monocytes Absolute Auto 0.6 K/mm3 (0.1-0.6); Monocytes Percent Auto 6.8 % (2.6-8.5); Neutrophils Absolute Auto 6.1 K/mm3 (1.3-6.7); Neutrophils Percent Auto 66.5 % (45.5-73.1); Platelet Count Result 205 k/mm3 (150-375); Red Blood Count 4.07 M/mm3 (4.2-5.4); Red Cell Distribution Width 15.4 % (11.5-14.5); White Blood Count 9.1 K/mm3 (4.5-10.0)
[2021-11-17] MEDS: SODIUM CHLORIDE 0.9% IV 1,000 ML 999 ML IV CONT (15:54)
[2021-11-17 16:05] LABS: Alanine Aminotransferase 19 U/L (6-35); Alkaline Phosphatase 47 U/L (38-126); Anion Gap 0 mmol/L (8-16); Aspartate Amino Transferase 35 U/L (14-36); Bilirubin,Total 0.3 mg/dL (0.2-1.3); Blood Urea Nitrogen 20 mg/dL (7-17); Calcium 7.7 mg/dL (8.4-10.2); Carbon Dioxide 35 mmol/L (22-30); Chloride 107 mmol/L (98-107); Estimated CRCL calculation 52 ml/min; Estimated Glomerular Filt Rate > 60; Glucose 105 mg/dL (65-110); Potassium 3.3 mmol/L (3.4-5.0); Sodium 142 mmol/L (137-145)
[2021-11-17 16:06] LABS: Appearance Urine Clear (Clear); Bilirubin Urine Negative (Negative); Blood Urine Negative (Negative); Color Urine Yellow (Yellow); Glucose Urine UA Negative (Negative); Ketones Urine Negative (Negative); Leukocyte Esterase Ur Negative LEU/UL (Negative); Nitrate Urine Negative (Negative); Protein Urine Negative (Negative); Specific Grav Ur 1.025 (1.001-1.035); Urobilinogen Urine 0.2 mg/dL (<2.0); pH Urine 5.5 (5.0-9.0)
[2021-11-17 16:15] LABS: Add Urine Microscopic? NO
--- NOTE | 2021-11-17 18:02 | ECG_ITS ---
Measurements Intervals [place] Rate: 85 P: -1 IN: 153 QRS: -34 QRSD: 107 T: 25 QT: 385 QTc: 459 Interpretive Statements SINUS RHYTHM POSSIBLE LEFT ATRIAL ENLARGEMENT LEFT AXIS DEVIATION INCOMPLETE RIGHT BUNDLE BRANCH BLOCK MODERATE T-WAVE ABNORMALITY, CONSIDER ANTERIOR ISCHEMIA ABNORMAL ECG COMPARED TO ECG 07/02/2021 15:25:03 HEART RATE HAS DECREASED Electronically Signed On 11-18-2021 14:34:00 CDT by Teddy Henriquez M.D.
--- NOTE | 2021-11-17 18:03 | PCCCNOTE ---
Addendum entered by Francesca Mansfield RN 11/17/21 19:27: Awaiting [facility] with patient's oxygen, patient aware, confirms when discharged will go to home and get her truck and belongings and will go to a hotel. Does not have money for transportation and no one can pick her up. Cab Voucher written and provided to Bedside HAYDER Owens. Phone number for Giovana Murry given to Romna also for follow up as needed. Original Note: Late entry: Spoke with patient at bedside ER 13 about discharge. Patient states that since her last admission in June, she stayed at [facility] for 6 weeks but was to risky and was asked to leave. Has been living in her car. House is unliveable, oxygen tanks are on front porch. On last admission her daughter was working on placement for her near [place]. Asked her about that and she states that arrangements have been made but she is not ready to move. Asked about discharge today and what she is going to do, says that she will look at a hotels in the area. Care coordinators provides patient with a list and allows her to use managed care nurse's phone as her phone is out of battery and she does not have a driver service technician. Patient makes calls and all hotels have availability for tonight and she will decide. She will need transportation home to get her car but she does not have any oxygen. Updated ER MD and he requests that care coordination work on oxygen for discharge. Patient's supplier is [facility], called to [facility] at [phone] and they state that [place], [place] is supplier so [place] cannot accomodate. Call to [facility] 25 minute wait on phone, cartoonist special effects team will call have someone call back. Phone call received from Jose Murry at [phone], he states that it will take him about an hour to bring oxygen. JUANIS Madden updated.
--- NOTE | 2021-11-17 18:18 | ED.GENADULT ---
HPI - General Adult General Chief complaint: Unspecified Stated complaint: altered LOC Time Seen by Provider: 11/17/21 15:02 Source: patient Mode of arrival: EMS Limitations: no limitations History of Present Illness HPI narrative: 76-year-old with a history of interstitial lung disease on 2 L of O2 via nasal cannula was brought in from her truck which was parked in front of her house with a O2 tank inside her house. Patient states that she is not allowed to stay in her house because it was a Band-Aid and she has been living in a truck for last several weeks. Patient states that there were people to inspect her house and she was found in her car sleeping with the windows down. Patient upon arrival denied any chest pain, shortness of breath, headache she states that she might have been dehydrated sleeping in the hot truck. Onset (ago): day(s) (1) Relieving factors: none Exacerbating factors: none Associated symptoms: denies other symptoms Related Data Home Medications Medication Instructions Recorded Confirmed dextroamphetamine-amphetamine 20 20 mg PO BID 10/16/19 07/03/21 mg tablet (Adderall) paroxetine HCl 40 mg tablet 40 mg PO DAILY 10/16/19 07/02/21 Spiriva with HandiHaler 18 mcg inhalation QAM 07/02/21 07/02/21 alprazolam 0.25 mg PO DAILY PRN Anxiety 07/02/21 07/03/21 prednisone 5 mg PO QAM 07/02/21 07/02/21 Allergies Allergy/AdvReac Type Severity Reaction Status Date / Time No Known Allergies Allergy Unverified 04/10/21 10:03 Review of Systems Review of Systems: All systems reviewed & are unremarkable except as noted in HPI and below Constitutional: Constitutional: Reports no additional constitutional complaints Eyes: Eyes: Reports no additional eye complaints ENT: Reports system reviewed and no additional complaints, except as documented Cardiovascular: Cardiovascular: Reports no additional cardiovascular complaints Respiratory: Respiratory: Reports no additional respiratory complaints Gastrointestinal: Gastrointestinal: Reports no additional gastrointestinal complaints Musculoskeletal: Musculoskeletal: Reports no additional musculoskeletal complaints Neurologic: Reports system reviewed and no additional complaints, except as documented Psychiatric: Psychiatric: Reports no additional psychiatric complaints Endocrine: Endocrine: Reports no additional endocrine complaints Hematologic/Lymphatic: Hematologic/Lymphatic: Reports no additional hematologic/lymphatic complaints PMFSH Past Medical History Medical History Bronchiectasis Chronic interstitial lung disease Chronic respiratory failure with hypoxia Depression Hypersensitivity pneumonitis Intentional underdosing of medication regimen by patient due to financial hardship Pulmonary fibrosis Right ventricular dysfunction Surgical History Surgical History History of appendectomy History of breast implant With subsequent removal. History of hysterectomy History of lung biopsy Right VATS. 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 Family History Family History Father Cerebrovascular accident, Onset Age: 93 Family history of Alzheimer's disease, Onset Age: 93 Family history of dementia, Onset Age: 93 Mother Cerebrovascular accident, Onset Age: 91 Social History Social History Social History: Surrogate decision maker: Maryanne Aviles, daughter. Code status: Full code. Smoking packs per day: 2 Smoking cigarettes per day: 40.0 Second hand tobacco smoke exposure: No Smoking end date: 05/30/79 Alcohol intake: never Substance use: never Additional living arrangements comments: Patient's house was recently condemned. Currently living at a local nv
--- NOTE | 2021-11-17 20:56 | PC.NURSE ---
Pt received Oxygen tank and voucher for a cab ride.
== END 2021-11-17 20:28 | disposition home or self-care (01) ==
PROVIDERS: Emergency Provider Family Medicine
DX: T67.5XXA Heat exhaustion, unspecified, initial encounter (principal); J44.9 Chronic obstructive pulmonary disease, unspecified; Z59.02 Unsheltered homelessness; J84.9 Interstitial pulmonary disease, unspecified; J96.11 Chronic respiratory failure with hypoxia; F32.A Depression, unspecified; J84.10 Pulmonary fibrosis, unspecified; Z87.891 Personal history of nicotine dependence; I45.10 Unspecified right bundle-branch block; R94.31 Abnormal electrocardiogram [ECG] [EKG]; X30.XXXA Exposure to excessive natural heat, initial encounter
CPT/HCPCS: 36415; 71045; 80053; 81003; 85025; 93005; 99283; J7030